=== PATIENT | female | born 1935 | race Caucasian/White ===

== ENCOUNTER → 2018-01-24 | Outpatient (CLI) | payer MEDICARE, MEDICAID ==
[~2018-01-24] MED LIST: AMOX1TAB11 PO; BENZ200C51 PO; CARV25TA PO; CLON0.1T PO; ERGO50006 PO; FERR325T18 PO; FLUT16SP22 NS; FURO40TA4 PO; INSU100I14 SC; INSU100I29 SC; ROPI0.5T2 PO; ROSU10TA26 PO; VALS160T28 PO; VIT1TABL5 PO
--- NOTE | 2018-01-24 12:19 | Diagnostic Imaging Report ---
INDICATION: Right hip pain status post fall. COMPARISON: None. FINDINGS: Two dedicated radiographic views of the right hip were obtained. There is no fracture, dislocation, bone destruction, or radiopaque foreign body. Mild degenerative changes are present in the hip joints. The visualized pelvic osseous structures and the SI joints demonstrate no acute fracture or dislocation. There is no bone destruction or radiopaque foreign body. The surrounding soft tissue structures are unremarkable. IMPRESSION: 1. No acute fracture or dislocation in the right hip joint. 2. Mild osteoarthritis. Dictated by: Dictated on workstation # [id number]
== END ==
LOC: RAD 11:38
PROVIDERS: ATTEND Family Medicine
DX: M16.11 Unilateral primary osteoarthritis, right hip (principal); W19.XXXA Unspecified fall, initial encounter
CPT/HCPCS: 73502

== ENCOUNTER 2021-05-06 09:30 | Emergency (ER) | payer MEDICARE, MEDICAID ==
[~2021-05-06] VITALS: Ht 165 cm; Wt 72.7 kg
[~2021-05-06 09:30] MED LIST changes: +CLN.1T PO; -CLON0.1T PO; -ROPI0.5T2 PO; +ROPI0.5T4 PO; -ROSU10TA26 PO; +ROSU10TA28 PO; -VALS160T28 PO; +VALS160T29 PO
--- NOTE | 2021-05-06 10:01 | ED Lower Extremity ---
General Stated Complaint: R KNEE PAIN History of Present Illness Date Seen by Provider: May 06, 2021 Time Seen by Provider: 09:40 Initial Comments Patient is an 86-year-old female who presents to the emergency room after a mechanical trip and fall while walking at [employer] this morning. Patient states that she does not really know what precipitated the fall. She does not believe her feet got tangled up underneath her. She states she was just walking and all of a sudden went down on her right hip. She is complaining of hip pain down to her feet. When she arrives by EMS that right lower extremity is shortened and externally rotated. Pulses are intact she does have a significant amount of edema in her lower legs bilaterally. Per review of her medical records that she has with her she has chronic kidney disease and is on diuretic therapy. Patient states she is compliant with her medications. She is Covid vaccinated. She denies any head injury or loss of consciousness. She does not have any other complaints of pain. Patient is a little nauseous after her fall. All other review of systems reviewed and negative except as stated above. Onset: just prior to arrival Severity: moderate Pain/Injury Location: right thigh Method of Injury: fell Modifying Factors: Improves With Immobilization; Worse With Movement Allergies and Home Medications Allergies Coded Allergies: No Known Drug Allergies (Unverified , 01/16/18) Home Medications Amoxicillin/Potassium Clav 1 Each Tablet, 1 EACH PO BID Prescribed by: PIYUSH KITCHEN on 01/21/18 0740 Benzonatate 200 Mg Capsule, 200 MG PO TID PRN for COUGH, (Reported) Carvedilol 25 Mg Tablet, 25 MG PO BID, (Reported) Clonidine HCl 0.1 Mg Tablet, 0.1 MG PO TID, (Reported) Ergocalciferol (Vitamin D2) 50,000 Unit Capsule, 50,000 UNITS PO MONTHLY ON THE , (Reported) Ferrous Sulfate 325 Mg Tablet, 325 MG PO DAILY, (Reported) Fluticasone Propionate 16 Gm [place].susp, 2 SPRAY NS DAILY, (Reported) Furosemide 40 Mg Tablet, 40 MG PO MoWeFr, (Reported) Furosemide 40 Mg Tablet, 80 MG PO SuTuThSa, (Reported) TAKES 2 (40MG) TABLETS Insulin Aspart 300 Units/3 Ml Solution, 10 UNITS SC AC, (Reported) Insulin Detemir 100 Unit/1 Ml Insuln.pen, 42 UNITS SC DAILY, (Reported) Ropinirole HCl 0.5 Mg Tablet, 0.5 MG PO DAILY, (Reported) Rosuvastatin Calcium 10 Mg Tablet, 10 MG PO DAILY, (Reported) Valsartan 160 Mg Tablet, 160 MG PO DAILY, (Reported) Vit B12/Lm-Folate Ca/Vit B6/B2 1 Tab Tablet, 1 TAB PO DAILY, (Reported) Patient Home Medication List Home Medication List Reviewed: Yes Review of Systems Constitutional: see HPI EENTM: no symptoms reported Respiratory: no symptoms reported Cardiovascular: no symptoms reported Gastrointestinal: nausea Genitourinary: no symptoms reported Musculoskeletal: joint pain (Right hip) Skin: no symptoms reported All Other Systems Reviewed Negative Unless Noted: Yes Past Eqbxtbm-Dwmztr-Iwvujb Hx Seasonal Allergies Seasonal Allergies: No Past Medical History Surgeries: No Respiratory: No Cardiac: Yes High Cholesterol, Hypertension Neurological: No Genitourinary: Yes (history of urinary tract infection) Renal Failure Gastrointestinal: No Musculoskeletal: No Endocrine: Yes (hyperparathyroidism) Diabetes, Insulin dep HEENT: No Cancer: No Psychosocial: No Integumentary: No 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 7.0oz. 94.175801ao; 38.8 BMI Method:Estimated General Appearance: WD/WN, no apparent distress HEENT: PERRL/EOMI Neck: supple Cardiovascular: regular rate, rhythm Respiratory: normal breath sounds, no respiratory distress, no accessory muscle use Gastrointestinal: non tender, soft Hips: right hip bone tenderness (Right lateral hip), right hip deformity (Shortened and externally rotated), right hip limited range of motion (Secondary to pain), right hip pain; bilateral hip swelling Legs: bilateral leg non-tender, bilateral leg normal inspection, bilateral leg no evidence of injury Knees: bilateral knee non-tender, bilateral knee normal inspection, bilateral knee no evidence of injury Ankles: bilateral ankle non-tender, bilateral ankle normal inspection, bilateral ankle normal range of motion, bilateral ankle no evidence of injury Feet: bilateral foot non-tender, bilateral foot normal inspection, bilateral foot normal range of motion, bilateral foot no evidence of injury Neurologic/Psychiatric: no motor/sensory deficits, alert, normal mood/affect, oriented x 3 Skin: normal color, warm/dry Procedures/Interventions Date of ETT Placement: Jan 16, 2018 Time of ETT Placement: 1730 Progress/Results/Core Measures Results/Orders Lab Results Laboratory Tests Test 05/06/21 09:51 05/06/21 11:08 Range/Units Glucometer 182 H 70-110 MG/DL White Blood Count 12.1 H 4.3-11.0 10^3/uL Red Blood Count 2.65 L 3.80-5.11 10^6/uL Hemoglobin 8.2 L 11.5-16.0 g/dL Hematocrit 26 L 35-52 % Mean Corpuscular Volume 99 80-99 fL Mean Corpuscular Hemoglobin 31 25-34 pg Mean Corpuscular Hemoglobin Concent 31 L 32-36 g/dL Red Cell Distribution Width 13.6 10.0-14.5 % Platelet Count 311 130-400 10^3/uL Mean Platelet Volume 9.9 9.0-12.2 fL Immature Granulocyte % (Auto) 1 % Neutrophils (%) (Auto) 75 42-75 % Lymphocytes (%) (Auto) 16 12-44 % Monocytes (%) (Auto) 6 0-12 % Eosinophils (%) (Auto) 2 0-10 % Basophils (%) (Auto) 1 0-10 % Neutrophils # (Auto) 9.1 H 1.8-7.8 10^3/uL Lymphocytes # (Auto) 2.0 1.0-4.0 10^3/uL Monocytes # (Auto) 0.7 0.0-1.0 10^3/uL Eosinophils # (Auto) 0.2 0.0-0.3 10^3/uL Basophils # (Auto) 0.1 0.0-0.1 10^3/uL Immature Granulocyte # (Auto) 0.1 0.0-0.1 10^3/uL Sodium Level 141 135-145 MMOL/L Potassium Level 4.2 3.6-5.0 MMOL/L Chloride Level 111 H 98-107 MMOL/L Carbon Dioxide Level 19 L 21-32 MMOL/L Anion Gap 11 5-14 MMOL/L Blood Urea Nitrogen 35 H 7-18 MG/DL Creatinine 3.04 H 0.60-1.30 MG/DL Estimat Glomerular Filtration Rate 15 BUN/Creatinine Ratio 12 Glucose Level 209 H 70-105 MG/DL Calcium Level 8.0 L 8.5-10.1 MG/DL My Orders Orders - BRIAN CHÁVEZ MD Ekg Tracing (05/06/21 10:01) Accucheck Stat ONCE (05/06/21 10:01) Cbc With Automated Diff (05/06/21 10:01) Basic Metabolic Panel (05/06/21 10:01) Pelvis With Right Hip 2-3views (05/06/21 10:01) Fentanyl Inj (Sublimaze Injection) (05/06/21 10:15) Ondansetron Injection (Zofran Injectio (05/06/21 11:00) Medications Given in ED Vital Signs/I&O 05/06/21 05/06/21 09:32 13:02 Temp 36.0 Pulse 66 72 Resp 18 18 B/P (MAP) 181/80 (113) 152/59 Pulse Ox 95 97 O2 Delivery Room Air Room Air Progress Progress Note : Time: 11:42 Progress Note Patient reassessed, she is comfortable and pain-free as long as she is still. Patient reports to me that her kidney specialist at [facility] is Dr. Italia Solis. She is supposed to have a an appointment with her on Saturday for some sort of injection. Departure Impression Primary Impression: Hip fracture, right Qualified Codes: S72.001A - Fracture of unspecified part of neck of right femur, initial encounter for closed fracture Disposition: 02 XFER SHT-TRM HOSP Condition: Stable Transfer Transfer Reason: Exceeds level of care Time Spoke to Accepting Phy: 11:30 Transfer Progress Notes spoke with dr hall Transfer Time: 12:00 Transfer Facility: [facility] Method of Transfer: EMS Departure-Patient Inst. Referrals: PIYUSH KITCHEN DO (PCP/Family) Primary Care Physician BRIAN CHÁVEZ MD May 06, 2021 10:01
[2021-05-06] MEDS ORDERED: fentaNYL INJ 100 MCG/2 ML AMP IVP ONE (10:15)
[2021-05-06] MEDS ORDERED: ONDANSETRON 4 MG/2 ML (SDV) Z0FRAN IVP ONE (11:00)
[2021-05-06 11:29] LABS: BASOPHILS # (AUTO) 0.1 10^3/uL (0.0-0.1); BASOPHILS % (AUTO) 1 % (0-10); EOSINOPHILS # (AUTO) 0.2 10^3/uL (0.0-0.3); EOSINOPHILS % (AUTO) 2 % (0-10); HEMATOCRIT 26 % (35-52); HEMOGLOBIN 8.2 g/dL (11.5-16.0); LYMPHOCYTES % (AUTO) 16 % (12-44); MEAN CORPUSCULAR HEMOGLOBIN 31 pg (25-34); MEAN CORPUSCULAR HGB CONC 31 g/dL (32-36); MEAN CORPUSCULAR VOLUME 99 fL (80-99); MEAN PLATELET VOLUME 9.9 fL (9.0-12.2); MONOCYTES # (AUTO) 0.7 10^3/uL (0.0-1.0); MONOCYTES % (AUTO) 6 % (0-12); NEUTROPHILS # (AUTO) 9.1 10^3/uL (1.8-7.8); NEUTROPHILS % (AUTO) 75 % (42-75); PLATELET COUNT 311 10^3/uL (130-400); POTASSIUM 4.2 MMOL/L (3.6-5.0); WHITE BLOOD COUNT 12.1 10^3/uL (4.3-11.0)
[2021-05-06 11:34] LABS: CREATININE SERUM 3.04 MG/DL (0.60-1.30)
--- NOTE | 2021-05-06 11:35 | Diagnostic Imaging Report ---
CLINICAL HISTORY: Fall. Right hip pain. COMPARISON: 01/24/2018. TECHNIQUE: 3 views of the pelvis and right hip. FINDINGS: Acute intertrochanteric fracture is seen involving the proximal right femur. No dislocation of the right femoral head from the right acetabulum. The included left femur is unremarkable. No acute displaced fracture is seen in the pelvis. IMPRESSION: 1. Acute intertrochanteric fracture involving the proximal right femur. Dictated by: Dictated on workstation # [id number]
[2021-05-06 13:02] VITALS: BP 152/59
== END 2021-05-06 13:04 | disposition short-term general hospital (02) ==
LOC: EDUNIT# 09:30 → ER 09:31
DX: S72.141A Displaced intertrochanteric fracture of right femur, initial encounter for closed fracture (principal); I10 Essential (primary) hypertension; E11.9 Type 2 diabetes mellitus without complications; E78.00 Pure hypercholesterolemia, unspecified; Z79.4 Long term (current) use of insulin; Z79.899 Other long term (current) drug therapy; W01.0XXA Fall on same level from slipping, tripping and stumbling without subsequent striking against object, initial encounter
CPT/HCPCS: 36415; 80048; 82947; 85025; 93005

== ENCOUNTER → 2021-05-15 | Outpatient (CLI) | payer MEDICARE, MEDICAID | LOC: SDC 11:53 → EDSTATUS 11:55 | PROVIDERS: ATTEND Nurse Practitioner Family | DX: D64.9 Anemia, unspecified (principal) ==

== ENCOUNTER 2021-05-20 15:28 | Emergency (ER) | payer MEDICARE, MEDICAID ==
[~2021-05-20 15:28] MED LIST changes: -FLUT16SP22 NS; +FLUT16SP22 NSEACH
--- NOTE | 2021-05-20 15:46 | ED Upper Extremity ---
General Chief Complaint: Upper Extremity Stated Complaint: R SHOULDER PAIN Source: patient, residential records Exam Limitations: no limitations History of Present Illness Date Seen by Provider: May 20, 2021 Time Seen by Provider: 15:40 Initial Comments This is an 86-year-old female who presents to the ER via [facility] with complaints of right shoulder pain. Allergies and Home Medications Allergies Coded Allergies: No Known Drug Allergies (Unverified , 01/16/18) Home Medications Amoxicillin/Potassium Clav 1 Each Tablet, 1 EACH PO BID Prescribed by: PIYUSH KITCHEN on 01/21/18 0740 Benzonatate 200 Mg Capsule, 200 MG PO TID PRN for COUGH, (Reported) Carvedilol 25 Mg Tablet, 25 MG PO BID, (Reported) Clonidine HCl 0.1 Mg Tablet, 0.1 MG PO TID, (Reported) Ergocalciferol (Vitamin D2) 50,000 Unit Capsule, 50,000 UNITS PO MONTHLY ON THE , (Reported) Ferrous Sulfate 325 Mg Tablet, 325 MG PO DAILY, (Reported) Fluticasone Propionate 16 Gm [place].susp, 2 SPRAY NS DAILY, (Reported) Furosemide 40 Mg Tablet, 40 MG PO MoWeFr, (Reported) Furosemide 40 Mg Tablet, 80 MG PO SuTuThSa, (Reported) TAKES 2 (40MG) TABLETS Insulin Aspart 300 Units/3 Ml Solution, 10 UNITS SC AC, (Reported) Insulin Detemir 100 Unit/1 Ml Insuln.pen, 42 UNITS SC DAILY, (Reported) Ropinirole HCl 0.5 Mg Tablet, 0.5 MG PO DAILY, (Reported) Rosuvastatin Calcium 10 Mg Tablet, 10 MG PO DAILY, (Reported) Valsartan 160 Mg Tablet, 160 MG PO DAILY, (Reported) Vit B12/Lm-Folate Ca/Vit B6/B2 1 Tab Tablet, 1 TAB PO DAILY, (Reported) Past Rpwlfvu-Yadszf-Ydwhjc Hx Seasonal Allergies Seasonal Allergies: No Past Medical History Surgeries: No Respiratory: No Cardiac: Yes High Cholesterol, Hypertension Neurological: No Genitourinary: Yes (history of urinary tract infection) Renal Failure Gastrointestinal: No Musculoskeletal: No Endocrine: Yes (hyperparathyroidism) Diabetes, Insulin dep HEENT: No Cancer: No Psychosocial: No Integumentary: No 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 7.0oz. 94.051529sq; 26.00 BMI Method:Estimated Procedures/Interventions Date of ETT Placement: Jan 16, 2018 Time of ETT Placement: 1730 Progress/Results/Core Measures Results/Orders My Orders Orders - LAVERN [employer] Shoulder, Right, 3 Views (05/20/21 15:43) Vital Signs/I&O 05/20/21 15:28 Temp 37.0 Pulse 69 Resp 18 B/P (MAP) 130/59 (82) Pulse Ox 97 O2 Delivery Room Air Departure Impression Primary Impression: Rotator cuff arthropathy of right shoulder Disposition: 03 XFER SNF Condition: Improved Departure-Patient Inst. Decision time for Depature: 16:41 Referrals: EVANS RICHEY MD (PCP/Family) Primary Care Physician Patient Instructions: Shoulder Pain (DC) Add. Discharge Instructions: Plan: 1. May use ice 20 minutes at a time. May take Tylenol as needed for pain per package. 2. Avoid strenuous activity or pulling of upper extremities. 3. Follow up with your doctor if your pain persist. 4. Return for any new, concerning, or worsening symptoms. All discharge instructions reviewed with patient and/or family. Voiced understanding. LAVERN DE [employer] May 20, 2021 15:46
--- NOTE | 2021-05-20 16:12 | Diagnostic Imaging Report ---
EXAMINATION: Right shoulder, 2 or more views. HISTORY: Trauma. COMPARISON: None available. FINDINGS: There is superior subluxation of the humeral head with remodeling of the undersurface of the acromion. Findings suggestive of rotator cuff arthropathy. There is no charlene anterior or posterior dislocation. No fracture is seen. There is moderate acromioclavicular osteoarthritis. Right-sided portacatheter is present. IMPRESSION: Findings of rotator cuff arthropathy of the right glenohumeral joint without charlene anterior or posterior dislocation. Dictated by: Dictated on workstation # [id number]
[2021-05-20 18:22] VITALS: BP 119/92
== END 2021-05-20 18:22 ==
LOC: EDUNIT# 15:33 → ER 15:34
DX: M12.811 Other specific arthropathies, not elsewhere classified, right shoulder (principal); E11.22 Type 2 diabetes mellitus with diabetic chronic kidney disease; I12.9 Hypertensive chronic kidney disease with stage 1 through stage 4 chronic kidney disease, or unspecified chronic kidney disease; N18.9 Chronic kidney disease, unspecified; D63.1 Anemia in chronic kidney disease; E78.00 Pure hypercholesterolemia, unspecified; Z79.4 Long term (current) use of insulin; Z79.899 Other long term (current) drug therapy
CPT/HCPCS: 73030

== ENCOUNTER 2021-05-22 11:08 | Inpatient (IN) | payer MEDICARE, MEDICAID ==
[~2021-05-22] VITALS: Ht 180.3 cm; Wt 90.0 kg
[2021-05-22] MEDS ORDERED: FUROSEMIDE 40 MG/4 ML INJ (LASIX) IV STA (12:08)
--- NOTE | 2021-05-22 12:27 | ED General ---
General Chief Complaint: General Problems/Pain Stated Complaint: ABNORMAL LABS Nursing Triage Note: PT TO ROOM 03 [facility] WITH C/O ABNORMAL LABS. PT HAD LABS DRAWN AT [facility] TODAY. PT RESIDES AT [facility] FOR RECENT RIGHT HIP FX. Source of Information: Patient Exam Limitations: No Limitations History of Present Illness Date Seen by Provider: May 22, 2021 Time Seen by Provider: 12:03 Initial Comments Here with report of abnormal laboratory studies from the [facility]. Apparently she has elevated potassium and low hemoglobin. Patient has history o f chronic, stage IV renal disease. Denies any complaints other than does have increased swelling. Does report continuing to make urine. Denies fever chills or other concerns. In discussion regarding dialysis or further care, patient states that she does not want dialysis. She also request DNR status and states that she understands where she is at her stages of life and is okay with that. We did discuss at length regarding renal failure and patient verbalized understanding. She is okay with evaluation for the low hemoglobin and high potassium. Timing/Duration: 1 Day Severity: Mild Associated Systoms: No Chest Pain, No Fever/Chills, No Nausea/Vomiting, No Shortness of Air; Weakness Allergies and Home Medications Allergies Coded Allergies: No Known Drug Allergies (Unverified , 01/16/18) Home Medications Acetaminophen 650 Mg Tablet.er, 650 MG PO Q6H PRN for PAIN-MILD (1-4), (Reported) Last Action: Held Allopurinol 100 Mg Tablet, 200 MG PO DAILY, (Reported) TAKES 2 (100MG) TABS Last Action: Continued Amlodipine Besylate 5 Mg Tablet, 5 MG PO HS, (Reported) HOLD AND NOTIFY NURSE/PCP IF BP <80/50 OR >180/110 AND PULSE <50 OR >110 Last Action: Continued Aspirin 81 Mg Tablet.dr, 81 MG PO BID, (Reported) Last Action: Continued Carvedilol 6.25 Mg Tablet, 6.25 MG PO BID, (Reported) HOLD AND NOTIFY NURSE/PCP IF BP <80/50 OR >180/110 AND PULSE <50 OR >110 Last Action: Continued Cholecalciferol (Vitamin D3) 125 Mcg Capsule, 125 MCG PO DAILY, (Reported) Last Action: Held Clonidine HCl 0.1 Mg Tablet, 0.1 MG PO TID, (Reported) HOLD AND NOTIFY NURSE/PCP IF BP <80/50 OR >180/110 AND PULSE <50 OR >110 Last Action: Continued Docusate Sodium 100 Mg Tablet, 100 MG PO DAILY, (Reported) Last Action: Held Fluticasone Propionate 16 Gm [place].susp, 2 SPRAY NSEACH DAILY, (Reported) Last Action: Continued Gabapentin 300 Mg Capsule, 300 MG PO DAILY PRN for PAIN-BREAKTHROUGH, (Reported) Last Action: Continued Hydrocodone/Acetaminophen 1 Each Tablet, 1 EACH PO Q4H PRN for PAIN-MODERATE (5- 7), (Reported) Last Action: Held Insulin Aspart 300 Units/3 Ml Solution, 3 UNITS SC AC, (Reported) Last Action: Converted Insulin Detemir 100 Unit/1 Ml Insuln.pen, 8 UNITS SC BID, (Reported) Last Action: Converted Losartan Potassium 50 Mg Tablet, 50 MG PO DAILY, (Reported) HOLD AND NOTIFY NURSE/PCP IF BP <80/50 OR >180/110 AND PULSE <50 OR >110 Last Action: Held Magnesium Hydroxide 400 Mg/5 Ml Oral.susp, 30 ML PO DAILY PRN for CONSTIPATION- 7TH LINE, (Reported) Last Action: Held Ropinirole HCl 0.5 Mg Tablet, 0.5 MG PO HS, (Reported) Last Action: Converted Rosuvastatin Calcium 10 Mg Tablet, 10 MG PO HS, (Reported) Last Action: Continued Torsemide 20 Mg Tablet, 40 MG PO Q48H, (Reported) TAKES 2 (20MG) TABS Last Action: Held Tramadol HCl 50 Mg Tablet, 50 MG PO Q6H PRN for PAIN-MODERATE (5-7), (Reported) Last Action: Held Vitamin B Complex 1 Each Capsule, 1 EA PO DAILY, (Reported) Last Action: Held Patient Home Medication List Home Medication List Reviewed: Yes Review of Systems Review of Systems Constitutional: No chills, No fever EENTM: no symptoms reported Respiratory: No cough, No short of breath Cardiovascular: No chest pain; edema Gastrointestinal: No abdominal pain, No nausea, No vomiting Genitourinary: no symptoms reported Musculoskeletal: No back pain, No muscle pain; muscle weakness Skin: no symptoms reported All Other Systems Reviewed Negative Unless Noted: Yes Past Fiyyoyw-Xzjvrq-Rtynyj Hx Patient Social History Tobacco Use?: No Smoking Status: Never a Smoker Substance use?: No Alcohol Use?: No Pt feels they are or have been: No Immunizations Up To Date First/Initial COVID19 Vaccinat: 01/2021 Second COVID19 Vaccination Malcom: 02/2021 Seasonal Allergies Seasonal Allergies: No Past Medical History Surgery/Hospitalization HX: RIGHT HIP FX WITH REPAIR Surgeries: No Respiratory: No Cardiac: Yes High Cholesterol, Hypertension Neurological: No Genitourinary: Yes (history of urinary tract infection) Renal Failure Gastrointestinal: No Musculoskeletal: No Endocrine: Yes (hyperparathyroidism) Diabetes, Insulin dep HEENT: No Cancer: No Psychosocial: No Integumentary: No 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 7.0oz. 94.676677tg; 36.00 BMI Method:Estimated General Appearance: No Apparent Distress, WD/WN, Obese HEENT: PERRL/EOMI, Pharynx Normal Neck: Non Tender, Supple Respiratory: Lungs Clear, Normal Breath Sounds Cardiovascular: Regular Rate, Rhythm, No Murmur Gastrointestinal: Non Tender, Soft Back: Normal Inspection, No CVA Tenderness, No Vertebral Tenderness Extremity: Normal Range of Motion, Non Tender, No Calf Tenderness, Pedal Edema, Other (Edema noted to all 4 extremities) Neurologic/Psychiatric: Alert, Oriented x3, No Motor/Sensory Deficits Procedures/Interventions Date of ETT Placement: Jan 16, 2018 Time of ETT Placement: 1730 Progress/Results/Core Measures Suspected Sepsis SIRS Temperature: Pulse: 61 Respiratory Rate: 16 Laboratory Tests 05/22/21 12:28: White Blood Count 12.0H Blood Pressure 104 /94 Mean: 97 Laboratory Tests 05/22/21 12:28: Creatinine 3.73H, Platelet Count 459H, Total Bilirubin 0.3 Results/Orders Lab Results Laboratory Tests Test 05/22/21 12:28 05/22/21 12:55 Range/Units White Blood Count 12.0 H 4.3-11.0 10^3/uL Red Blood Count 2.51 L 3.80-5.11 10^6/uL Hemoglobin 7.7 L 11.5-16.0 g/dL Hematocrit 25 L 35-52 % Mean Corpuscular Volume 98 80-99 fL Mean Corpuscular Hemoglobin 31 25-34 pg Mean Corpuscular Hemoglobin Concent 31 L 32-36 g/dL Red Cell Distribution Width 14.1 10.0-14.5 % Platelet Count 459 H 130-400 10^3/uL Mean Platelet Volume 9.4 9.0-12.2 fL Immature Granulocyte % (Auto) 1 % Neutrophils (%) (Auto) 71 42-75 % Lymphocytes (%) (Auto) 16 12-44 % Monocytes (%) (Auto) 11 0-12 % Eosinophils (%) (Auto) 1 0-10 % Basophils (%) (Auto) 1 0-10 % Neutrophils # (Auto) 8.5 H 1.8-7.8 10^3/uL Lymphocytes # (Auto) 1.9 1.0-4.0 10^3/uL Monocytes # (Auto) 1.3 H 0.0-1.0 10^3/uL Eosinophils # (Auto) 0.1 0.0-0.3 10^3/uL Basophils # (Auto) 0.1 0.0-0.1 10^3/uL Immature Granulocyte # (Auto) 0.1 0.0-0.1 10^3/uL Sodium Level 142 135-145 MMOL/L Potassium Level 6.2 H 3.6-5.0 MMOL/L Chloride Level 109 H 98-107 MMOL/L Carbon Dioxide Level 22 21-32 MMOL/L Anion Gap 11 5-14 MMOL/L Blood Urea Nitrogen 58 H 7-18 MG/DL Creatinine 3.73 H 0.60-1.30 MG/DL Estimat Glomerular Filtration Rate 11 BUN/Creatinine Ratio 16 Glucose Level 64 L 70-105 MG/DL Calcium Level 8.2 L 8.5-10.1 MG/DL Corrected Calcium 9.6 8.5-10.1 MG/DL Total Bilirubin 0.3 0.1-1.0 MG/DL Aspartate Amino Transf (AST/SGOT) 61 H 5-34 U/L Alanine Aminotransferase (ALT/SGPT) 26 0-55 U/L Alkaline Phosphatase 128 40-136 U/L Total Protein 5.6 L 6.4-8.2 GM/DL Albumin 2.3 L 3.2-4.5 GM/DL Urine Color YELLOW Urine Clarity SL CLOUDY Urine pH 7.5 5-9 Urine Specific [place] 1.020 1.016-1.022 Urine Protein 3+ H NEGATIVE Urine Glucose (UA) NEGATIVE NEGATIVE Urine Ketones NEGATIVE NEGATIVE Urine Nitrite NEGATIVE NEGATIVE Urine Bilirubin NEGATIVE NEGATIVE Urine Urobilinogen 0.2 < = 1.0 MG/DL Urine Leukocyte Esterase 2+ H NEGATIVE Urine RBC (Auto) 2+ H NEGATIVE Urine RBC 0-2 /HPF Urine WBC 50-100 H /HPF Urine Squamous Epithelial Cells NONE /HPF Urine Crystals NONE /LPF Urine Bacteria LARGE H /HPF Urine Casts NONE /LPF Urine Mucus NEGATIVE /LPF Urine Culture Indicated YES Micro Results Microbiology 05/22/21 Urine Culture - Preliminary, Resulted Gram Negative Zen My Orders Orders - AMOR PRATT MD Cbc With Automated Diff (05/22/21 11:13) Comprehensive Metabolic Panel (05/22/21 11:13) Ed Iv/Invasive Line Start (05/22/21 12:08) Catheter(Urinary) Insert & Ass 03,15 (05/22/21 12:08) Furosemide Injection (Lasix Injection) (05/22/21 12:08) Ua Culture If Indicated (05/22/21 13:02) Urine Culture (05/22/21 12:55) Vital Signs/I&O 05/22/21 11:14 Temp 36.8 Pulse 61 Resp 16 B/P (MAP) 104/94 (97) O2 Delivery Room Air Capillary Refill : Less Than 3 Seconds Blood Pressure Mean: 97 Progress Note : Progress Note Seen and evaluated. Repeat labs ordered. IV established. Monitor patient. Patient noted to have persistent renal failure and elevated creatinine. Lasix 40 mg IV ordered as patient still does make urine. 1351: I did discuss the case with Dr. Boucher. He accepts patient for admission. He asked for additional dose of Lasix 40 mg IV which I did order. This to bring down the potassium well. Patient was noted to have urinary tract infection on UA from [place] catheter placement. She does have urinary tract infection without sepsis. We will go ahead and treat this asymptomatic UTI with Rocephin now and he will continue treatment as needed. No indication for sepsis order set as patient does not have findings consistent with sepsis or severe sepsis and the UTI is incidental. All findings concerns discussed with the patient who agrees with plan. Patient is DNR. Departure Communication (Admissions) Time/Spoke to Admitting Phy: 13:51 Impression Primary Impression: Urinary tract infection Qualified Codes: N30.00 - Acute cystitis without hematuria Additional Impression: Hyperkalemia Disposition: ADMITTED INPATIENT Condition: Stable Admissions Decision to Admit Reason: Admit from ER (General) Decision to Admit/Date: May 22, 2021 Time/Decision to Admit Time: 13:51 Departure-Patient Inst. Referrals: EVANS RICHEY MD (PCP/Family) Primary Care Physician AMOR PRATT MD May 22, 2021 12:27
[2021-05-22 12:35] LABS: BASOPHILS # (AUTO) 0.1 10^3/uL (0.0-0.1); BASOPHILS % (AUTO) 1 % (0-10); EOSINOPHILS # (AUTO) 0.1 10^3/uL (0.0-0.3); EOSINOPHILS % (AUTO) 1 % (0-10); HEMATOCRIT 25 % (35-52); HEMOGLOBIN 7.7 g/dL (11.5-16.0); LYMPHOCYTES # (AUTO) 1.9 10^3/uL (1.0-4.0); LYMPHOCYTES % (AUTO) 16 % (12-44); MEAN CORPUSCULAR HEMOGLOBIN 31 pg (25-34); MEAN CORPUSCULAR HGB CONC 31 g/dL (32-36); MEAN CORPUSCULAR VOLUME 98 fL (80-99); MEAN PLATELET VOLUME 9.4 fL (9.0-12.2); MONOCYTES # (AUTO) 1.3 10^3/uL (0.0-1.0); MONOCYTES % (AUTO) 11 % (0-12); NEUTROPHILS # (AUTO) 8.5 10^3/uL (1.8-7.8); NEUTROPHILS % (AUTO) 71 % (42-75); PLATELET COUNT 459 10^3/uL (130-400)
[2021-05-22 12:47] LABS: ALBUMIN 2.3 GM/DL (3.2-4.5); POTASSIUM 6.2 MMOL/L (3.6-5.0)
[2021-05-22 12:48] LABS: CALCIUM 8.2 MG/DL (8.5-10.1)
[2021-05-22 12:49] LABS: TOTAL PROTEIN 5.6 GM/DL (6.4-8.2)
[2021-05-22 12:51] LABS: BILIRUBIN,TOTAL 0.3 MG/DL (0.1-1.0)
[2021-05-22 12:53] LABS: CREATININE SERUM 3.73 MG/DL (0.60-1.30)
[2021-05-22 13:11] LABS: BILIRUBIN,URINE NEGATIVE (NEGATIVE); CLARITY,URINE SL CLOUDY; COLOR,URINE YELLOW; GLUCOSE, URINE (UA) NEGATIVE (NEGATIVE); KETONES,URINE NEGATIVE (NEGATIVE); LEUKOCYTE ESTERASE ,URINE 2+ (NEGATIVE); NITRITE,URINE NEGATIVE (NEGATIVE); PH,URINE 7.5 (5-9); PROTEIN,URINE 3+ (NEGATIVE)
[2021-05-22 13:43] LABS: BACTERIA,URINE LARGE /HPF; RBC,URINE 0-2 /HPF; WBC,URINE 50-100 /HPF
[2021-05-22] MEDS ORDERED: AMLO-250 PO (15:56)
[2021-05-22] MEDS ORDERED: ASPI-1238 PO (15:56)
[2021-05-22] MEDS ORDERED: MAGN400O7 PO ×2 (15:56)
[2021-05-22] MEDS ORDERED: ACET-2840 PO (15:56)
[2021-05-22] MEDS ORDERED: CARV6.252 PO (15:56)
[2021-05-22] MEDS ORDERED: LOSA50TA63 PO (15:56)
[2021-05-22] MEDS ORDERED: TRAM50TA3 PO (15:56)
[2021-05-22] MEDS ORDERED: VITA1CAP PO (15:56)
[2021-05-22] MEDS ORDERED: HYDR-3817 PO (15:56)
[2021-05-22] MEDS ORDERED: GABA300C PO (15:56)
[2021-05-22] MEDS ORDERED: DOCU100T2 PO (15:56)
[2021-05-22] MEDS ORDERED: CHOL500050 PO (15:56)
[2021-05-22] MEDS ORDERED: TORS20TA3 PO (15:56)
[2021-05-22] MEDS ORDERED: ALLO100T PO (15:56)
[2021-05-22 16:00] VITALS: BP 187/67
[2021-05-22] MEDS: FUROSEMIDE 40 MG/4 ML INJ (LASIX) IVP SCH (16:10)
[2021-05-22] MEDS: cefTRIAXone 1,000 MG/SWFI 10 ML IV PUSH IV SCH ×2 (16:10)
--- NOTE | 2021-05-22 16:14 | History & Physical-Hospitalist ---
MARS BERRIOS 05/22/21 1614: History of Present Illness HPI/Chief Complaint Marley Hackett is an 86y/o F who presents after being transferred from the ED for abnormal labs. She reports that she was brought in today because of hip pain and she was not having any bowl movements lately. Pt says that the hip pain is constant and sharp. The pain worsens when she is laying on her side. Rates the pain as a 10/10 but says that she is not having any issues sleeping at night. Source: patient Exam Limitations: no limitations Date Seen 05/22/21 Time Seen by a Provider: 15:22 Attending Physician Gisel Waldron MD PCP John Kapadia MD Referring Physician Date of Admission May 22, 2021 at 14:18 Home Medications & Allergies Home Medications Reviewed patient Home Medication Reconciliation performed by pharmacy medication reconciliations healthcare technician and/or nursing. Patients Allergies have been reviewed. Allergies Allergies Coded Allergies No Known Drug Allergies (Unverified01/16/18) Past Hlixcqt-Tclwvm-Fzxelt Hx Patient Social History Tobacco Use?: No Smoking Status: Never a Smoker Use of E-Cig and/or Vaping dev: No Substance use?: No Alcohol Use?: No Pt feels they are or have been: No Immunizations Up To Date First/Initial COVID19 Vaccinat: 01/2021 Second COVID19 Vaccination Malcom: 02/2021 Tetanus Booster (TDap): Unknown Seasonal Allergies Seasonal Allergies: No Current Status status: No Advance Directives: Yes Advance Directive Location: Home Communicates: Verbally Primary Language: Kenyan Preferred Spoken Language: Kenyan Is interpretation needed?: No Sensory deficits: Vision impairment Implanted or Applied Medical D: Orthopedic hardware Past Medical History High Cholesterol, Hypertension Renal Failure Diabetes, Insulin dep Blood Disorders: Yes (anemia secondary to renal failure) Adverse Reaction/Blood Tranf: No Review of Systems Constitutional: No chills, No dizziness, No fever Respiratory: short of breath Cardiovascular: No chest pain, No palpitations Gastrointestinal: No abdominal pain; constipation Musculoskeletal: joint pain (rt hip), muscle pain (rt arm) Psychiatric/Neurological: Denies Headache, Denies Numbness Physical Exam Physical Exam Vital Signs Vital Signs - First Documented 05/22/21 05/22/21 11:14 14:55 Temp 36.8 Pulse 61 Resp 16 B/P (MAP) 104/94 (97) Pulse Ox 95 O2 Delivery Room Air Capillary Refill : Less Than 3 Seconds Height, Weight, BMI Height: 5'2.00" Weight: 209lbs. 7.0oz. [id number]; 27.68 BMI Method:Estimated General Appearance: No Apparent Distress Respiratory: Lungs Clear, Normal Breath Sounds Cardiovascular: Regular Rate, Rhythm, No Murmur (3-4+/4) Gastrointestinal: Non Tender, Soft Genital/Rectal: Other (Pt had mcclellan bag in which had yellow/green urine with mucus present) Extremity: Pedal Edema Neurologic/Psychiatric: Alert, Other (Oriented to place but not time) Results Results/Procedures Labs Laboratory Tests 05/22/21 12:28 Patient resulted labs reviewed. Assessment/Plan Admission Diagnosis RAY on CKD Assessment and Plan Assessment 1.RAY on CKD 2.Hyperkalemia 3.Anemia related to CKD 4.Suspected UTI Plan Start Lasix for lower extremity edema Start ceftriaxone for UTI GISEL WALDRON MD 05/23/21 1104: Past Yzcdzrg-Nyxcen-Iykaak Hx Past Medical History Hypertension Bladder Infection, Renal Failure Diabetes, Insulin dep Family Medical History No Pertinent Family Hx Assessment/Plan Admission Diagnosis Admission Status: Inpatient Order (span 2 midnights) Reason for Inpatient Admission: Renal failure Assessment and Plan RAY on CKD with guarded prognosis. She does not want dialysis. We will medically manage her renal failure complications and treat her for a UTI. Diagnosis/Problems Diagnosis/Problems (1) Acute kidney injury superimposed on chronic kidney disease Status: Acute (2) Hyperkalemia Status: Acute (3) Urinary tract infection Status: Acute Qualifiers: Urinary tract infection type: acute cystitis Hematuria presence: without hematuria Qualified Codes: N30.00 - Acute cystitis without hematuria Supervisory-Addendum Brief Verification & Attestation Participated in pt care: history, MDM, physical Personally performed: exam, history, MDM, supervision of care Care discussed with: Medical Student Procedures: n/a Results interpretation: Verified all documentation A medical student performed and documented this service in my presence. I reviewed and verified all information documented by the medical student and made modifications to such information, when appropriate. I personally performed the physical exam and medical decision making. MARS BERRIOS May 22, 2021 16:14 GISEL WALDRON MD May 23, 2021 11:04
[2021-05-22] MEDS ORDERED: GABAPENTIN 300 MG (NEURONTIN) CAP PO PRN (17:30)
[2021-05-22] MEDS ORDERED: BISACODYL 10 MG SUPP (DULCOLAX) PR PRN (17:45)
[2021-05-22] MEDS ORDERED: ONDANSETRON 4 MG/2 ML (SDV) Z0FRAN IV PRN (17:45)
[2021-05-22] MEDS ORDERED: ONDANSETRON 4 MG (ZOFRAN) ORAL DISSOLVE TAB PO PRN (17:45)
[2021-05-22] MEDS ORDERED: ACETAMINOPHEN 500 MG TAB (TYLENOL) PO PRN (17:45)
[2021-05-22] MEDS ORDERED: MELATONIN 3 MG TABLET PO PRN (17:45)
[2021-05-22] MEDS ORDERED: ACETAMINOPHEN 325 MG TABLET PO PRN (17:45)
[2021-05-22] MEDS ORDERED: inSUlin ASPART (NovoLOG) 1 UNIT/0.01 ML (CHARGE PER UNIT) SC SCH (17:45)
[2021-05-22] MEDS ORDERED: SOD POLYSTERENE 15 GM/60 ML (KAYEXALATE) UNIT DOSE PO ONE (17:45)
[2021-05-22] MEDS ORDERED: ANTACID SUSP 30 ML UDC (MYLANTA) PO PRN (17:45)
[2021-05-22] MEDS ORDERED: polyethylene glycoL POWDER 17 GM (MIRALAX) PACK PO PRN (17:45)
[2021-05-22] MEDS ORDERED: NALOXONE 0.4 MG/ML 1 ML (NARCAN) VIAL IV PRN (17:45)
[2021-05-22 19:30] VITALS: BP 196/69
[2021-05-22] MEDS: rOPINIRole 0.25 MG (REQUIP) TAB PO SCH (19:55)
[2021-05-22] MEDS: ROSUVASTATIN 10 MG (CRESTOR) TABLET PO SCH (19:56)
[2021-05-22] MEDS: ASPIRIN E.C. 81 MG (ECOTRIN) TAB PO SCH (19:56)
[2021-05-22] MEDS: cloNIDine 0.1 MG (CATAPRES) TAB PO SCH (19:56)
[2021-05-22] MEDS: SENNOSIDES 8.6 MG (SENOKOT) TAB PO SCH (19:56)
[2021-05-22] MEDS: DOCUSATE SODIUM 100 MG (COLACE) CAP PO SCH (19:56)
[2021-05-22] MEDS: inSUlin ASPART (NovoLOG) 1 UNIT/0.01 ML (CHARGE PER UNIT) SC SCH (20:42)
[2021-05-22] MEDS ORDERED: INSULIN DETEMIR 8 UNIT SC SCH (21:00)
[2021-05-22] MEDS ORDERED: amLODIPine 5 MG (NORVASC) TAB PO SCH (21:00)
[2021-05-22 21:10] VITALS: BP 171/65
[2021-05-23] VITALS (7 sets, daily range): BP systolic 156–189; BP diastolic 59–76
[2021-05-23] MEDS: inSUlin ASPART (NovoLOG) 1 UNIT/0.01 ML (CHARGE PER UNIT) SC SCH ×4 (05:39→20:52)
[2021-05-23 05:49] LABS: BASOPHILS # (AUTO) 0.1 10^3/uL (0.0-0.1); BASOPHILS % (AUTO) 0 % (0-10); EOSINOPHILS % (AUTO) 0 % (0-10); HEMATOCRIT 23 % (35-52); LYMPHOCYTES % (AUTO) 14 % (12-44); MEAN CORPUSCULAR HEMOGLOBIN 30 pg (25-34); MEAN CORPUSCULAR HGB CONC 30 g/dL (32-36); MEAN CORPUSCULAR VOLUME 100 fL (80-99); MEAN PLATELET VOLUME 9.6 fL (9.0-12.2); MONOCYTES # (AUTO) 1.2 10^3/uL (0.0-1.0); MONOCYTES % (AUTO) 8 % (0-12); NEUTROPHILS # (AUTO) 11.2 10^3/uL (1.8-7.8); NEUTROPHILS % (AUTO) 77 % (42-75); PLATELET COUNT 449 10^3/uL (130-400); WHITE BLOOD COUNT 14.5 10^3/uL (4.3-11.0)
[2021-05-23 05:51] LABS: HEMOGLOBIN 6.9 g/dL (11.5-16.0)
[2021-05-23 06:03] LABS: CALCIUM 7.8 MG/DL (8.5-10.1)
[2021-05-23 06:07] LABS: PHOSPHORUS 5.8 MG/DL (2.3-4.7)
[2021-05-23 06:08] LABS: CREATININE SERUM 3.84 MG/DL (0.60-1.30)
[2021-05-23 06:18] LABS: LYMPHOCYTES % (MANUAL) 13 %; MONOCYTES % (MANUAL) 5 %; NEUTROPHILS % (MANUAL) 82 %
[2021-05-23 06:19] LABS: ANISOCYTOSIS SLIGHT; HYPOCHROMASIA SLIGHT
[2021-05-23 06:20] LABS: POTASSIUM 6.5 MMOL/L (3.6-5.0)
[2021-05-23] MEDS: FUROSEMIDE 40 MG/4 ML INJ (LASIX) IVP SCH ×2 (06:26→16:41)
[2021-05-23] MEDS ORDERED: INSULIN ASPART 3 UNIT SC SCH (07:00)
[2021-05-23] MEDS ORDERED: DEXTROSE 50% 50 ML (IMS) SYR IV NR (07:45)
[2021-05-23] MEDS ORDERED: inSUlin (REGULAR) HUMAN 1 UNIT/0.01 ML (CHARGE PER UNIT) IV NR (07:45)
[2021-05-23] MEDS ORDERED: FUROSEMIDE 40 MG/4 ML INJ (LASIX) IVP NR (07:45)
[2021-05-23] MEDS ORDERED: SOD POLYSTERENE 15 GM/60 ML (KAYEXALATE) UNIT DOSE PO NR (07:45)
[2021-05-23] MEDS: SENNOSIDES 8.6 MG (SENOKOT) TAB PO SCH ×2 (08:11→21:42)
[2021-05-23] MEDS: CALCIUM ACETATE 667 MG CAP (PHOSLO) PO SCH ×3 (08:11→16:41)
[2021-05-23] MEDS: SODIUM BICARBONATE 650 MG TABLET (NON-FORMULARY) PO SCH ×3 (08:11→20:29)
[2021-05-23] MEDS: ASPIRIN E.C. 81 MG (ECOTRIN) TAB PO SCH ×2 (08:11→20:29)
[2021-05-23] MEDS: ALLOPURINOL 100 MG (ZYLOPRIM) TAB PO SCH (08:11)
[2021-05-23] MEDS: cloNIDine 0.1 MG (CATAPRES) TAB PO SCH ×3 (08:11→20:29)
[2021-05-23] MEDS: DOCUSATE SODIUM 100 MG (COLACE) CAP PO SCH ×2 (08:11→21:42)
[2021-05-23] MEDS: FLUTICASONE NASAL SPRAY (FLONASE) 16 GM BTL NS SCH (08:14)
--- NOTE | 2021-05-23 13:06 | Progress Note - Hospitalist ---
JEANNETTE BERRIOSIN 05/23/21 1306: Subjective HPI/CC On Admission Time Seen by Provider: 07:48 Subjective/Events-last exam Pt was alert and awake. She reports having SOB this morning and said that at times she feels that she can't catch her breath. O2 was given at 3lpm via nasal canula. Says that the pain that she was experiencing yesterday has improved. She stated that if a time would come that she would need dialysis that should would not like that to be done. Not having any abdominal pain. Reports that she has been able to have bowl movements Review of Systems General: No Chills, No Other (fever) Pulmonary: No Dyspnea; Other (SOB) Cardiovascular: No: Chest Pain, Palpitations Gastrointestinal: No: Abdominal Pain Focused Exam Respiratory: Lungs Clear, Normal Breath Sounds Cardiovascular: Regular Rate, Rhythm, No Murmur Objective Exam Vital Signs Vital Signs Date Time Temp Pulse Resp B/P (MAP) Pulse Ox O2 Delivery O2 Flow Rate FiO2 05/23/21 11:46 37.5 76 24 180/62 (101) 97 Nasal Cannula 2.00 Capillary Refill : Less Than 3 Seconds General Appearance: No Apparent Distress Respiratory: Lungs Clear, Normal Breath Sounds Cardiovascular: Regular Rate, Rhythm, No Murmur Gastrointestinal: Soft, Other (slight tenderness to palpitation in LUQ) Extremity: Pedal Edema (3-4+/4 ) Neurologic/Psychiatric: Alert Results/Procedures Lab Laboratory Tests 05/23/21 05:35 Patient resulted labs reviewed. Assessment/Plan Assessment and Plan Assess & Plan/Chief Complaint Assessment 1.RAY on CKD 2.Hyperkalemia 3.Anemia related to CKD 4.Suspected UTI Plan Start Lasix for lower extremity edema Start ceftriaxone for UTI Consult with palliative care GISEL WALDRON MD 05/23/21 1741: Subjective HPI/CC On Admission Date Seen by Provider: May 23, 2021 Assessment/Plan Assessment and Plan Assess & Plan/Chief Complaint Treating RAY on CKD. Lasix for fluid overload. Start oral Bicarb and Phoslo. Les ating hyperkalemia. Anemia of chronic renal disease, hold off on transfusion for now and monitor closely. Palliative care consulted, will likely discharge on hospice. Diagnosis/Problems Diagnosis/Problems (1) Acute kidney injury superimposed on chronic kidney disease Status: Acute (2) Hyperkalemia Status: Acute (3) UTI (urinary tract infection) Status: Acute (4) Anemia Status: Acute Qualifiers: Qualified Codes: N18.4 - Chronic kidney disease, stage 4 (severe); D63.1 - Anemia in chronic kidney disease Supervisory-Addendum Brief Verification & Attestation Participated in pt care: history, MDM, physical Personally performed: exam, history, MDM, supervision of care Care discussed with: Medical Student Procedures: n/a Results interpretation: Verified all documentation A medical student performed and documented this service in my presence. I reviewed and verified all information documented by the medical student and made modifications to such information, when appropriate. I personally performed the physical exam and medical decision making. MARS BERRIOS May 23, 2021 13:06 GISEL WALDRON MD May 23, 2021 17:41
[2021-05-23] MEDS: cefTRIAXone 1,000 MG/SWFI 10 ML IV PUSH IV SCH ×2 (16:41)
[2021-05-23 17:38] LABS: POTASSIUM 5.5 MMOL/L (3.6-5.0)
[2021-05-23 17:39] LABS: CALCIUM 8.6 MG/DL (8.5-10.1)
[2021-05-23 17:43] LABS: CREATININE SERUM 3.87 MG/DL (0.60-1.30)
[2021-05-23] MEDS ORDERED: SOD POLYSTERENE 15 GM/60 ML (KAYEXALATE) UNIT DOSE PO ONE (20:15)
[2021-05-23] MEDS ORDERED: hydrALAZINE (APESOLINE) 20 MG/ML VIAL IV PRN (20:15)
[2021-05-23] MEDS: ROSUVASTATIN 10 MG (CRESTOR) TABLET PO SCH (20:29)
[2021-05-23] MEDS: rOPINIRole 0.25 MG (REQUIP) TAB PO SCH (20:29)
[2021-05-23] MEDS: amLODIPine 5 MG (NORVASC) TAB PO SCH (20:29)
[2021-05-24] VITALS (9 sets, daily range): BP systolic 137–188; BP diastolic 63–74
[2021-05-24 05:43] LABS: BASOPHILS # (AUTO) 0.1 10^3/uL (0.0-0.1); BASOPHILS % (AUTO) 0 % (0-10); EOSINOPHILS # (AUTO) 0.3 10^3/uL (0.0-0.3); EOSINOPHILS % (AUTO) 2 % (0-10); HEMATOCRIT 22 % (35-52); LYMPHOCYTES # (AUTO) 2.1 10^3/uL (1.0-4.0); LYMPHOCYTES % (AUTO) 15 % (12-44); MEAN CORPUSCULAR HEMOGLOBIN 30 pg (25-34); MEAN CORPUSCULAR HGB CONC 31 g/dL (32-36); MEAN CORPUSCULAR VOLUME 98 fL (80-99); MEAN PLATELET VOLUME 9.7 fL (9.0-12.2); MONOCYTES # (AUTO) 1.3 10^3/uL (0.0-1.0); MONOCYTES % (AUTO) 9 % (0-12); NEUTROPHILS # (AUTO) 10.3 10^3/uL (1.8-7.8); NEUTROPHILS % (AUTO) 73 % (42-75); PLATELET COUNT 454 10^3/uL (130-400); WHITE BLOOD COUNT 14.2 10^3/uL (4.3-11.0)
[2021-05-24 05:51] LABS: POTASSIUM 4.7 MMOL/L (3.6-5.0)
[2021-05-24 05:52] LABS: CALCIUM 7.8 MG/DL (8.5-10.1)
[2021-05-24 05:53] LABS: HEMOGLOBIN 6.7 g/dL (11.5-16.0)
[2021-05-24 05:56] LABS: CREATININE SERUM 3.72 MG/DL (0.60-1.30)
[2021-05-24] MEDS: inSUlin ASPART (NovoLOG) 1 UNIT/0.01 ML (CHARGE PER UNIT) SC SCH ×4 (06:20→20:38)
[2021-05-24] MEDS: FUROSEMIDE 40 MG/4 ML INJ (LASIX) IVP SCH ×2 (06:35→17:29)
[2021-05-24] MEDS: cloNIDine 0.1 MG (CATAPRES) TAB PO SCH ×3 (08:52→21:06)
[2021-05-24] MEDS: CALCIUM ACETATE 667 MG CAP (PHOSLO) PO SCH ×3 (08:52→17:29)
[2021-05-24] MEDS: ALLOPURINOL 100 MG (ZYLOPRIM) TAB PO SCH (08:52)
[2021-05-24] MEDS: FLUTICASONE NASAL SPRAY (FLONASE) 16 GM BTL NS SCH (08:53)
[2021-05-24] MEDS: SODIUM BICARBONATE 650 MG TABLET (NON-FORMULARY) PO SCH ×3 (08:53→21:05)
[2021-05-24] MEDS: SENNOSIDES 8.6 MG (SENOKOT) TAB PO SCH ×2 (08:53→21:05)
[2021-05-24] MEDS: DOCUSATE SODIUM 100 MG (COLACE) CAP PO SCH ×2 (08:53→21:06)
[2021-05-24] MEDS: ASPIRIN E.C. 81 MG (ECOTRIN) TAB PO SCH ×2 (08:57→21:05)
[2021-05-24] MEDS ORDERED: NS IV 500 ML 500 ML ONE (11:34)
--- NOTE | 2021-05-24 12:29 | Progress Note - Hospitalist ---
MARS BERRIOS 05/24/21 1229: Subjective HPI/CC On Admission Time Seen by Provider: 08:20 Subjective/Events-last exam Pt reports that she is doing well this morning and states that she feels better. Was awake and alert. Says that her feet are feeling less swollen than when she first arrived. Review of Systems General: No Chills, No Other (fever) HEENT: No Head Aches Pulmonary: No Dyspnea; Other (occasional SOB) Cardiovascular: No: Chest Pain, Palpitations Objective Exam Vital Signs Vital Signs Date Time Temp Pulse Resp B/P (MAP) Pulse Ox O2 Delivery O2 Flow Rate FiO2 05/24/21 12:10 37.2 72 16 165/72 98 Nasal Cannula 2.00 Capillary Refill : Less Than 3 Seconds General Appearance: No Apparent Distress, WD/WN Respiratory: Lungs Clear, Normal Breath Sounds, No Respiratory Distress Cardiovascular: Regular Rate, Rhythm, No Murmur Gastrointestinal: Non Tender, Soft Extremity: Pedal Edema (3+/4) Results/Procedures Lab Laboratory Tests 05/23/21 17:15 05/24/21 05:18 Patient resulted labs reviewed. Assessment/Plan Assessment and Plan Assess & Plan/Chief Complaint Assessment 1.RAY on CKD 2.Hyperkalemia 3.Anemia related to CKD 4.Suspected UTI Plan Continue current medications. Do blood transfusion for low Hgb. Start EPO or adequate substitute GISEL WALDRON MD 05/24/21 1302: Assessment/Plan Assessment and Plan Assess & Plan/Chief Complaint Continuing treatments for RAY on CKD. EPO for AoCD. Antibiotics for Serratia UTI. Planning to discharge back to [place] on hospice. Diagnosis/Problems Diagnosis/Problems (1) Acute kidney injury superimposed on chronic kidney disease Status: Acute (2) Hyperkalemia Status: Resolved Resolution Date/Time: 05/24/21 @ 13:02 (3) Anemia Status: Acute Qualifiers: Qualified Codes: N18.4 - Chronic kidney disease, stage 4 (severe); D63.1 - Anemia in chronic kidney disease (4) UTI (urinary tract infection) Status: Acute Qualifiers: Qualified Codes: N30.01 - Acute cystitis with hematuria Supervisory-Addendum Brief Verification & Attestation Participated in pt care: history, MDM, physical Personally performed: exam, history, MDM, supervision of care Care discussed with: Medical Student Procedures: n/a Results interpretation: Verified all documentation A medical student performed and documented this service in my presence. I reviewed and verified all information documented by the medical student and made modifications to such information, when appropriate. I personally performed the physical exam and medical decision making. MARS BERRIOS May 24, 2021 12:29 GISEL WALDRON MD May 24, 2021 13:02
--- NOTE | 2021-05-24 14:18 | Physical Therapy Evaluation ---
PT Evaluation-General Medical Diagnosis Admission Date May 23, 2021 at 13:59 Medical Diagnosis: RAY, anemia, sepsis Onset Date: May 23, 2021 Therapy Diagnosis Therapy Diagnosis: impaired mobility, strength, endurance Height/Weight Height (Feet): 5 Height (Inches): 2.00 Weight (Pounds): 209 Weight (Ounces): 7.0 Precautions Precautions/Isolations: Fall Prevention, Standard Precautions Weight Bear Status Right Lower Extremity: Right Weight Bearing/Tolerated Referral Physician: Sander Reason for Referral: Evaluation/Treatment Medical History Pertinent Medical History: HTN, Renal Insufficiency Additional Medical History Past Medical History High Cholesterol, Hypertension Renal Failure Diabetes, Insulin dep Blood Disorders: Yes (anemia secondary to renal failure) Adverse Reaction/Blood Tranf: No Reviewed History: Yes Social History Home: Apartment (patient states she lives in assisted living) Prior Prior Level of Function SCALE: Activities may be completed with or without assistive devices. 3-Ewyjkingco-cdwojyy completes the activity by him/herself with no assistance from a helper. 5-Set-up or Clean-up Assistance-helper sets up or cleans up; patient completes activity. [place] assists only prior to or following the activity. 4-Supervision or Touching Assistance-helper provides verbal cues and/or touching/steadying and/or contact guard assistance as patient completes activity. Assistance may be provided throughout the activity or intermittently. 3-Partial/Moderate Assistance-helper does LESS THAN HALF the effort. [place] lifts, holds or supports trunk or limbs, but provides less than half the effort. 2-Substantial/Maximal Assistance-helper does MORE THAN HALF the effort. [place] lifts or holds trunk or limbs and provides more than half the effort. 7-Qujuuletx-twvmrs does ALL the effort. Patient does none of the effort to complete the activity. Or, the assistance of 2 or more helpers is required for the patient to complete the activity. If activity was not attempted, code reason: 7-Patient Refused. 9-Not Applicable-not attempted and the patient did not perform the activity before the current illness, exacerbation or injury. 10-Not Attempted due to Environmental Limitations-(lack of equipment, weather restraints, etc.). 88-Not Attempted due to Medical Conditions or Safety Concerns. unknown, except patient states she was using a rolling walker PT Evaluation-Current Subjective Patient in bed pre tx, agrees to PT, has no complaints of pain at rest but does have right hip pain with movement. Patient is currently getting blood Hgb was 6.7. Patient has had a right hip surgery from a hip fx, has a bandage, she is WBAT per Dr. Boucher. Pt/Family Goals none stated Objective Patient Orientation: Person, Confused Attachments: Oxygen, De León Catheter, IV Sensory Hearing: Functional Sensation Right Lower Extremit: Intact Sensation Left Lower Extremity: Intact Transfers Roll Left to Right (QC): 2 Sit to Lying (QC): 2 Lying to Sitting/Side of Bed(Q: 2 Patient sat on the side of the bed with max assist, was able to sit for about 2 min before needing to lay back down. Balance Sitting Static: Fair Sitting Dynamic: Poor Treatment RLE hip protocol x10 (AP, QS, GS, HS, SAQ, SLR, hip abd/add) Assessment/Needs Patient in bed post tx with nurse call, phone, tray, all needs met. Patient has impaired mobility, strength, endurance, right hip pain with movement. Patient needs max assist for supine <-> sit. Rehab Potential: Fair PT Tire Fixer Goals Longterm Goals PT Longterm Goals Time Frame: May 31, 2021 Roll Left & Right (QC): 3 Sit to Lying (QC): 3 Lying-Sitting on Side/Bed(QC): 3 Sit to Stand (QC): 3 Chair/Uut-qn-Jhtfl Xfer(QC): 3 Walk 10 feet (QC): 3 Walk 50ft with 2 Turns (QC): 3 PT Plan Problem List Problem List: Activity Tolerance, Functional Strength, Safety, Balance, Gait, Transfer, Bed Mobility, ROM Treatment/Plan Treatment Plan: Continue Plan of Care Treatment Plan: Bed Mobility, Education, Functional Activity Emiliana, Functional Strength, Gait, Safety, Therapeutic Exercise, Transfers Treatment Duration: May 31, 2021 Frequency: 6 times per week Estimated Hrs Per Day: .25 hour per day Patient and/or Family Agrees t: Yes Safety Risks/Education Patient Education: Correct Positioning, Safety Issues Teaching Recipient: Patient Teaching Methods: Demonstration, Discussion Response to Teaching: Reinforcement Needed Discharge Recommendations Plan Patient will perform bed mobility and transfer training, balance and endurance training, functional strengthening, gait training, and education, to improve functional mobility and independence at home. Therapy Discharge Recommendati: 24 Hour Supervision Time/GCodes Time In: 1338 Time Out: 1351 Total Billed Treatment Time: 13 Total Billed Treatment 1 visit PASTORA MONTENEGRO PT May 24, 2021 14:18
--- NOTE | 2021-05-24 14:28 | Occupational Therapy Eval ---
OT Evaluation-General/PLF Medical Diagnosis Admission Date May 23, 2021 at 13:59 Medical Diagnosis: RAY, anemia, sepsis Onset Date: May 22, 2021 Therapy Diagnosis Therapy Diagnosis: decreased ADL status Height/Weight Height (Feet): 5 Height (Inches): 2.00 Weight (Pounds): 209 Weight (Ounces): 7.0 Precautions Precautions/Isolations: Fall Prevention, Standard Precautions Weight Bear Status Weight Bearing Restriction: Weight Bearing/Tolerated Location Restriction: R LE Referral Physician: Sander Referral Reason: Evaluation/Treatment Medical History Pertinent Medical History: DM, HTN, Renal Insufficiency Current History ED via EMS due to abnormal labs. Recent R hip fracture 05-06-21 after falling at [place], pt had surgery. Social History [facility] ADL-Prior Level of Function SCALE: Activities may be completed with or without assistive devices. 8-Yjmdchxdlt-vrwwmgf completes the activity by him/herself with no assistance from a helper. 5-Set-up or Clean-up Assistance-helper sets up or cleans up; patient completes activity. [place] assists only prior to or following the activity. 4-Supervision or Touching Assistance-helper provides verbal cues and/or touching/steadying and/or contact guard assistance as patient completes activity. Assistance may be provided throughout the activity or intermittently. 3-Partial/Moderate Assistance-helper does LESS THAN HALF the effort. [place] lifts, holds or supports trunk or limbs, but provides less than half the effort. 2-Substantial/Maximal Assistance-helper does MORE THAN HALF the effort. [place] lifts or holds trunk or limbs and provides more than half the effort. 6-Tqlytyfbj-kqvlam does ALL the effort. Patient does none of the effort to complete the activity. Or, the assistance of 2 or more helpers is required for the patient to complete the activity. If activity was not attempted, code reason: 7-Patient Refused. 9-Not Applicable-not attempted and the patient did not perform the activity before the current illness, exacerbation or injury. 10-Not Attempted due to Environmental Limitations-(lack of equipment, weather restraints, etc.). 88-Not Attempted due to Medical Conditions or Safety Concerns. ADL PLOF Comments Pt indicates she was at [facility] receiving therapy (OT/PT). Pt poor historian on PLOF, based on clinical judgment, pt most likely required assistance with ADLs since hip fx. Self Care: Unknown Functional Cognition: Unknown DME/Equipment Comments walker OT Current Status Subjective Pt laying in bed, upon OT entering room, pt states she doesn't need anything right now. OT educated pt on purpose and benefit of OT, she agreed to OT evaluation. Pt currently receiving blood transfusion Mental Status/Objective Attachments: De León Catheter, IV, Oxygen Current Glasses/Contacts: Yes Upper Extremity ROM Pt states recent shoulder injury to R shoulder, pt had difficulty raising arm off of bed as instructed. AAROM R shoulder flexion to approx 90 degrees then increased pain. WFL RUE elbow/wrist/hand. WFL, LUE shoulder flexion to approx 140 degrees Upper Extremity Strength RUE grossly 2/5, LUE grossly 3/5 ADL-Treatment Eating (QC): 5 (Pt states she requires assistance to cut food, then able to feed self.) Oral Hygiene (QC): 5 (set up assist, pt able to use LUE with oral swab to clean mouth) Upper Body Dressing (QC): 3 (based on clincial judgement, pt would require assistance with RUE) Toileting Hygiene (QC): 1 (based on clincial judgement, pt would require total assist at this time) Other Treatments Pt laying in bed, OT educated pt on purpose and benefit of OT, she verbalized understanding. Pt attempted to provide information about PLOF, but poor historian. Pt indicates she was receiving therapy at [facility]. She brushed her hair and teeth with set up assistance and washed her face. Pt declined UE exercises as she is tired, but participated in UE screen. Post tx, pt laying in bed, call light in reach and all needs met. Per PT evaluation, pt sat on EOB with max A, tolerating 2 mins at EOB Education OT Patient Education: Correct positioning, Modified ADL techniques, Progress toward Goal/Update tx plan, Purpose of tx/functional activities, Rehab process Teaching Recipient: Patient Teaching Methods: Discussion Response to Teaching: Verbalize Understanding, Reinforcement Needed OT Residential Goals Residential Goals Time Frame: Jun 02, 2021 Eating (QC): 5 Oral Hygiene (QC): 5 Toileting Hygiene (QC): 3 Shower/Bathe Self (QC): 3 Upper Body Dressing (QC): 3 Lower Body Dressing (QC): 3 On/Off Footwear (QC): 2 Additional Goals: 1-Demonstrate ADL Tasks, 2-Verbalize Understanding, 3- ImproveStrength/Emiliana 1=Demonstrate adherence to instructed precautions during ADL tasks. 2=Patient will verbalize/demonstrate understanding of assistive devices/modifications for ADL. 3=Patient will improve strength/tolerance for activity to enable patient to perform ADL's. OT Education/Plan Problem List/Assessment Assessment: Decreased Activ Tolerance, Decreased UE Strength, Impaired Bed Mobility, Impaired Funct Balance, Impaired I ADL's, Impaired Self-Care Skills, Restricted Funct UE ROM Discharge Recommendations Plan/Recommendations: Continue POC Treatment Plan/Plan of Care Patient would benefit from OT for education, treatment and training to promote independence in ADL's, mobility, safety and/or upper extremity function for ADL's. Plan of Care: ADL Retraining, Functional Mobility, UE Funct Exercise/Act Treatment Duration: Jun 02, 2021 Frequency: 5 times per week Estimated Hrs Per Day: .25 hour per day Rehab Potential: Fair Time/GCodes Start Time: 14:04 Stop Time: 14:16 Total Time Billed (hr/min): 12 Billed Treatment Time 1, JOSE ALBERTO SCHMID OT May 24, 2021 14:28
[2021-05-24] MEDS ORDERED: ACETAMINOPHEN 325 MG TABLET PO PRN (14:45)
[2021-05-24] MEDS: cefTRIAXone 1,000 MG/SWFI 10 ML IV PUSH IV SCH ×2 (17:29)
[2021-05-24] MEDS: rOPINIRole 0.25 MG (REQUIP) TAB PO SCH (21:05)
[2021-05-24] MEDS: ROSUVASTATIN 10 MG (CRESTOR) TABLET PO SCH (21:06)
[2021-05-24] MEDS: amLODIPine 5 MG (NORVASC) TAB PO SCH (21:07)
[2021-05-25 00:05] VITALS: BP 146/67
[2021-05-25 04:28] VITALS: BP 145/71
[2021-05-25 06:14] LABS: BASOPHILS # (AUTO) 0.1 10^3/uL (0.0-0.1); BASOPHILS % (AUTO) 1 % (0-10); EOSINOPHILS # (AUTO) 0.3 10^3/uL (0.0-0.3); EOSINOPHILS % (AUTO) 2 % (0-10); HEMATOCRIT 27 % (35-52); LYMPHOCYTES # (AUTO) 1.4 10^3/uL (1.0-4.0); LYMPHOCYTES % (AUTO) 13 % (12-44); MEAN CORPUSCULAR HEMOGLOBIN 30 pg (25-34); MEAN CORPUSCULAR HGB CONC 30 g/dL (32-36); MEAN CORPUSCULAR VOLUME 99 fL (80-99); MEAN PLATELET VOLUME 9.5 fL (9.0-12.2); MONOCYTES # (AUTO) 0.9 10^3/uL (0.0-1.0); MONOCYTES % (AUTO) 8 % (0-12); NEUTROPHILS # (AUTO) 7.8 10^3/uL (1.8-7.8); NEUTROPHILS % (AUTO) 75 % (42-75); PLATELET COUNT 417 10^3/uL (130-400); WHITE BLOOD COUNT 10.4 10^3/uL (4.3-11.0)
[2021-05-25 06:28] LABS: POTASSIUM 4.5 MMOL/L (3.6-5.0)
[2021-05-25 06:29] LABS: CALCIUM 7.6 MG/DL (8.5-10.1)
[2021-05-25 06:33] LABS: CREATININE SERUM 3.64 MG/DL (0.60-1.30)
[2021-05-25] MEDS: inSUlin ASPART (NovoLOG) 1 UNIT/0.01 ML (CHARGE PER UNIT) SC SCH (06:33)
[2021-05-25] MEDS: FUROSEMIDE 40 MG/4 ML INJ (LASIX) IVP SCH (06:43)
[2021-05-25 07:26] VITALS: BP 149/64
[2021-05-25] MEDS ORDERED: DARBEPOETIN 40 MCG/ML (ARANESP) HOSPITAL SC ONE (08:00)
[2021-05-25] MEDS: CALCIUM ACETATE 667 MG CAP (PHOSLO) PO SCH (09:00)
[2021-05-25] MEDS ORDERED: CEFDINIR 300 MG (OMNICEF) CAP PO SCH (09:00)
[2021-05-25] MEDS: ASPIRIN E.C. 81 MG (ECOTRIN) TAB PO SCH (09:57)
[2021-05-25] MEDS: DOCUSATE SODIUM 100 MG (COLACE) CAP PO SCH (09:58)
[2021-05-25] MEDS: cloNIDine 0.1 MG (CATAPRES) TAB PO SCH (09:58)
[2021-05-25] MEDS: SODIUM BICARBONATE 650 MG TABLET (NON-FORMULARY) PO SCH (09:59)
[2021-05-25] MEDS: SENNOSIDES 8.6 MG (SENOKOT) TAB PO SCH (09:59)
[2021-05-25] MEDS: FLUTICASONE NASAL SPRAY (FLONASE) 16 GM BTL NS SCH (09:59)
[2021-05-25] MEDS: ALLOPURINOL 100 MG (ZYLOPRIM) TAB PO SCH (10:00)
--- NOTE | 2021-05-25 10:19 | Physical Therapy Daily Note ---
PT Daily Note-Current Subjective Patient is very agreeable to participate with therapy. Mental Status Patient Orientation: Person, Time, Situation Attachments: Oxygen, De León Catheter Transfers SCALE: Activities may be completed with or without assistive devices. 4-Bbavevomwm-uqcglfq completes the activity by him/herself with no assistance from a helper. 5-Set-up or Clean-up Assistance-helper sets up or cleans up; patient completes activity. [place] assists only prior to or following the activity. 4-Supervision or Touching Assistance-helper provides verbal cues and/or touching/steadying and/or contact guard assistance as patient completes activity. Assistance may be provided throughout the activity or intermittently. 3-Partial/Moderate Assistance-helper does LESS THAN HALF the effort. [place] lifts, holds or supports trunk or limbs, but provides less than half the effort. 2-Substantial/Maximal Assistance-helper does MORE THAN HALF the effort. [place] lifts or holds trunk or limbs and provides more than half the effort. 5-Cfsqeswrj-akfevg does ALL the effort. Patient does none of the effort to complete the activity. Or, the assistance of 2 or more helpers is required for the patient to complete the activity. If activity was not attempted, code reason: 7-Patient Refused. 9-Not Applicable-not attempted and the patient did not perform the activity before the current illness, exacerbation or injury. 10-Not Attempted due to Environmental Limitations-(lack of equipment, weather restraints, etc.). 88-Not Attempted due to Medical Conditions or Safety Concerns. Lying to Sitting/Side of Bed(Q: 2 Sit to Stand (QC): 3 Chair/Wmf-yi-Orqxy Xfer(QC): 3 patient able to perform sit to stand to FWW and pivot to recliner without difficulty Weight Bearing Right Lower Extremity: Right Weight Bearing/Tolerated Exercises Seated Therapy Exercises: Ankle pumps, Long arc quads Seated Reps: 12 Assessment Patient up in recliner with needs met. Increase mobility. PT Yardage Control Operator Goals Penitentiary Goals PT [facility]itentiary Goals Time Frame: May 31, 2021 Roll Left & Right (QC): 3 Sit to Lying (QC): 3 Lying-Sitting on Side/Bed(QC): 3 Sit to Stand (QC): 3 Chair/Kpd-xj-Haokl Xfer(QC): 3 Walk 10 feet (QC): 3 Walk 50ft with 2 Turns (QC): 3 PT Plan Treatment/Plan Treatment Plan: Continue Plan of Care Treatment Plan: Bed Mobility, Education, Functional Activity Emiliana, Functional Strength, Gait, Safety, Therapeutic Exercise, Transfers Treatment Duration: May 31, 2021 Frequency: 6 times per week Estimated Hrs Per Day: .25 hour per day Patient and/or Family Agrees t: Yes Time/GCodes Time In: 903 Time Out: 918 Total Billed Treatment Time: 15 Total Billed Treatment 1 visit FA 15 min ISAMAR POWERS PT May 25, 2021 10:19
[2021-05-25 11:20] VITALS: BP 171/72
[2021-05-25] MEDS ORDERED: CEFD300C3 PO (11:27)
[2021-05-25] MEDS ORDERED: TORS20TA3 PO (11:27)
[2021-05-25] MEDS ORDERED: CALC667C10 PO (11:27)
[2021-05-25] MEDS ORDERED: NF-SODBICA PO (11:27)
[2021-05-25] MEDS ORDERED: AMLO-251 PO (11:27)
[2021-05-25] MEDS ORDERED: CARV12.53 PO (11:27)
--- NOTE | 2021-05-25 12:00 | Discharge Inst-Skilled Nursing ---
Discharge Inst-Skilled NF Reconcile Patient Problems Problems Reviewed?: Yes Consult/Follow Up/Orders Follow Up Appt.: next shelter rounds Skilled NF Admit to: [facility] Certification (SNF) I certify that SNF services are required to be given on an inpatient basis because of the above named patient's need for jail care on a continuing basis for the conditions(s) for which he/she was receiving inpatient hospital services prior to his/her transfer to the SNF. Correction Facility Order: Nursing Services, Highway Worker-Evaluate & Treat, Physical Therapy-Evaluate & Treat Oxygen Delivery Method: Nasal Cannula Oxygen Flow Rate L/min (Range): 2 PRN Discharge Diet: Low Sodium Diet Daily Activity as Tolerated: Yes Resuscitation Status: Do Not Resuscitate New & Resume Previous Orders Janeth Waldron May 25, 2021 11:58 JANETH WALDRON MD May 25, 2021 12:00
--- NOTE | 2021-05-25 12:15 | Progress Note - Hospitalist ---
MARS BERRIOS 05/25/21 1215: Subjective HPI/CC On Admission Time Seen by Provider: 08:35 Subjective/Events-last exam Pt was awake and alert. She reports having no new problems. Says that she feels better than yesterday and is doing fine. Review of Systems General: No Chills, No Other (fever) Pulmonary: No Dyspnea, No Other (SOB) Cardiovascular: No: Chest Pain, Palpitations Neurological: No: Other (ANDERSON, dizziness) Objective Exam Vital Signs Vital Signs Date Time Temp Pulse Resp B/P (MAP) Pulse Ox O2 Delivery O2 Flow Rate FiO2 05/25/21 11:20 35.8 63 20 171/72 (105) 99 Nasal Cannula 2.00 Capillary Refill : Less Than 3 Seconds General Appearance: No Apparent Distress, WD/WN Respiratory: Lungs Clear, Normal Breath Sounds Cardiovascular: Regular Rate, Rhythm, No Murmur Gastrointestinal: Non Tender, Soft Extremity: Pedal Edema (3+/4) Neurologic/Psychiatric: Alert, Normal Mood/Affect Results/Procedures Lab Laboratory Tests 05/25/21 05:35 Patient resulted labs reviewed. Assessment/Plan Assessment and Plan Assess & Plan/Chief Complaint Assessment 1.RAY on CKD 2.Anemia related to CKD 3. UTI Plan Started on Cefdinir, sodium bicarbonate and calcium acetate. Dosage increase for carvodilol, amilodipine, and torsemide. Discussed with pt how she has improved since she was first admitted and what was treated. Discussed that she would be discharged with medications that she would need to take. she will be discharged to the half-way in [place]. Pt was understanding all of subjects discussed GISEL WALDRON MD 05/29/21 1024: MARS BERRIOS May 25, 2021 12:15 GISEL WALDRON MD May 29, 2021 10:24
--- NOTE | 2021-05-25 13:03 | Occupational Ther Daily Note ---
OT Current Status-Daily Note Subjective Pt seated upright in recliner, agreeable to OT tx. ADL-Treatment Therapy Code Descriptions/Definitions Functional Hooker Measure: 0=Not Assessed/NA 4=Minimal Assistance 1=Total Assistance 5=Supervision or Setup 2=Maximal Assistance 6=Modified Hooker 3=Moderate Assistance 7=Complete IndependenceSCALE: Activities may be completed with or without assistive devices. 8-Bfhqoxxhbr-mhuodqg completes the activity by him/herself with no assistance from a helper. 5-Set-up or Clean-up Assistance-helper sets up or cleans up; patient completes activity. [place] assists only prior to or following the activity. 4-Supervision or Touching Assistance-helper provides verbal cues and/or touching/steadying and/or contact guard assistance as patient completes activity. Assistance may be provided throughout the activity or intermittently. 3-Partial/Moderate Assistance-helper does LESS THAN HALF the effort. [place] lifts, holds or supports trunk or limbs, but provides less than half the effort. 2-Substantial/Maximal Assistance-helper does MORE THAN HALF the effort. [place] lifts or holds trunk or limbs and provides more than half the effort. 6-Lwbncbhrs-qncobe does ALL the effort. Patient does none of the effort to complete the activity. Or, the assistance of 2 or more helpers is required for the patient to complete the activity. If activity was not attempted, code reason: 7-Patient Refused. 9-Not Applicable-not attempted and the patient did not perform the activity before the current illness, exacerbation or injury. 10-Not Attempted due to Environmental Limitations-(lack of equipment, weather restraints, etc.). 88-Not Attempted due to Medical Conditions or Safety Concerns. Other Treatment Pt seated upright in recliner, completed oral care using foam swab with set up assistance, washed face with set up assistance and brushed hair with min A (assist in back with tangles). In order to increase BUE strength and activity tolerance, pt completed x15 reps each of the following: elbow flexion, elbow extension, finger flexion/extension. Post tx, pt seated in recliner, call light in reach and all needs met. Education OT Patient Education: Correct positioning, Modified ADL techniques, Progress toward Goal/Update tx plan, Purpose of tx/functional activities, Rehab process Teaching Recipient: Patient Teaching Methods: Demonstration, Discussion Response to Teaching: Verbalize Understanding OT Program Project Manager Goals Program Project Manager Goals Time Frame: Jun 02, 2021 Eating (QC): 5 Oral Hygiene (QC): 5 Toileting Hygiene (QC): 3 Shower/Bathe Self (QC): 3 Upper Body Dressing (QC): 3 Lower Body Dressing (QC): 3 On/Off Footwear (QC): 2 Additional Goals: 1-Demonstrate ADL Tasks, 2-Verbalize Understanding, 3- ImproveStrength/Emiliana 1=Demonstrate adherence to instructed precautions during ADL tasks. 2=Patient will verbalize/demonstrate understanding of assistive devices/modifications for ADL. 3=Patient will improve strength/tolerance for activity to enable patient to perform ADL's. OT Education/Plan Problem List/Assessment Assessment: Decreased Activ Tolerance, Decreased UE Strength, Impaired I ADL's, Impaired Self-Care Skills Discharge Recommendations Plan/Recommendations: Continue POC Treatment Plan/Plan of Care Patient would benefit from OT for education, treatment and training to promote independence in ADL's, mobility, safety and/or upper extremity function for ADL's. Plan of Care: ADL Retraining, Functional Mobility, UE Funct Exercise/Act Treatment Duration: Jun 02, 2021 Frequency: 5 times per week Estimated Hrs Per Day: .25 hour per day Rehab Potential: Fair Time/GCodes Start Time: 11:38 Stop Time: 11:50 Total Time Billed (hr/min): 12 Billed Treatment Time 1, ADL JOSE ALBERTO SIERRA OT May 25, 2021 13:03
[2021-05-25 13:58] VITALS: BP 171/72
[2021-05-25] MEDS ORDERED: FUROSEMIDE 40 MG (LASIX) TAB PO SCH (17:00)
--- NOTE | 2021-05-29 10:23 | Discharge Summary ---
Discharge Summary Hospital Course Was the Problem List Reviewed?: Yes Problems/Dx: (1) Acute kidney injury superimposed on chronic kidney disease Status: Acute (2) Hyperkalemia Status: Resolved (3) Anemia Status: Acute Qualifiers: Qualified Codes: N18.5 - Chronic kidney disease, stage 5; D63.1 - Anemia in chronic kidney disease (4) UTI (urinary tract infection) Status: Acute Qualifiers: Qualified Codes: N30.01 - Acute cystitis with hematuria Hospital Course Date of Admission: May 23, 2021 at 13:59 Admission Diagnosis : RAY on CKD5 Family Physician/Provider: Evans Richey MD Date of Discharge: 05/25/21 Discharge Diagnosis: RAY on CKD5, UTI, Anemia of chronic disease Hospital Course: Marley Hackett is an 86 year old female admitted with acute kidney injury superimposed on chronic kidney disease stage 5. She does not want to undergo dialysis and was managed conservatively. She had issues with hyperkalemia which improved with medications. She had fluid overload which improved with diuretics. She had metabolic acidosis and was started on sodium bicarbonate replacement. She had hyperphosphatemia and was started on Phoslo. She had issues with hypertension and her Amlodipine and Coreg were increased. Her Losartan was discontinued due to her low GFR and hyperkalemia. She had issues with anemia and required 1 unit PRBC. She was given a dose of Epo due to her anemia of chronic disease. She had a UTI and will receive a course of Omnicef. She was discharged back to [facility] for skilled therapies. She will benefit from hospice care in the near future. Labs and Pending Lab Test: Microbiology 05/22/21 Urine Culture - Final, Complete Serratia marcescens Home Meds Active Sodium Bicarbonate 650 Mg Tablet 650 Mg PO TIDWM 30 Days Calcium Acetate 667 Mg Capsule 667 Mg PO TIDWM 30 Days Amlodipine Besylate 10 Mg Tablet 10 Mg PO DAILY 30 Days Carvedilol 12.5 Mg Tablet 12.5 Mg PO BID 30 Days Cefdinir 300 Mg Capsule 300 Mg PO BID 5 Days Torsemide 20 Mg Tablet 40 Mg PO DAILY 30 Days TAKES 2 (20MG) TABS Reported Vitamin D3 (Cholecalciferol (Vitamin D3)) 125 Mcg Capsule 125 Mcg PO DAILY Vitamin B Complex 1 Each Capsule 1 Ea PO DAILY Tramadol HCl 50 Mg Tablet 50 Mg PO Q6H PRN Milk of Magnesia (Magnesium Hydroxide) 400 Mg/5 Ml Oral.susp 30 Ml PO DAILY PRN Hydrocodone-Acetamin 7.5-325 (Hydrocodone/Acetaminophen) 1 Each Tablet 1 Each PO Q4H PRN Neurontin (Gabapentin) 300 Mg Capsule 300 Mg PO DAILY PRN Docusate Sodium 100 Mg Tablet 100 Mg PO DAILY Aspirin EC (Aspirin) 81 Mg Tablet.dr 81 Mg PO BID Allopurinol 100 Mg Tablet 200 Mg PO DAILY TAKES 2 (100MG) TABS Tylenol 8 Hour (Acetaminophen) 650 Mg Tablet.er 650 Mg PO Q6H PRN Novolog Flexpen (Insulin Aspart) 300 Units/3 Ml Solution 3 Units SC AC Levemir Flextouch (Insulin Detemir) 100 Unit/1 Ml Insuln.pen 8 Units SC BID Rosuvastatin Calcium 10 Mg Tablet 10 Mg PO HS Ropinirole HCl 0.5 Mg Tablet 0.5 Mg PO HS Fluticasone Propionate 16 Gm [place].susp 2 Rozel NSEACH DAILY Clonidine HCl 0.1 Mg Tablet 0.1 Mg PO TID HOLD AND NOTIFY NURSE/PCP IF BP <80/50 OR >180/110 AND PULSE <50 OR >110 Assessment/Pt Instructions Take medications as prescribed. Follow up with your PCP. Return with worsening symptoms. Discharge Planning: <30 minutes discharge planning Discharge Instructions Discharge Diet: Low Sodium Diet Discharge Physical Examination Vital Signs Vital Signs Date Time Temp Pulse Resp B/P (MAP) Pulse Ox O2 Delivery O2 Flow Rate FiO2 05/25/21 13:58 35.8 63 20 171/72 99 Nasal Cannula 2.00 General Appearance: No Apparent Distress, Obese Respiratory: Lungs Clear, Normal Breath Sounds, No Respiratory Distress Cardiovascular: Regular Rate, Rhythm, No Murmur Gastrointestinal: Normal Bowel Sounds, Non Tender, Soft Extremity: Normal Inspection, Pedal Edema Skin: Normal Color, Warm/Dry Neurologic/Psychiatric: Alert, Oriented x3, No Motor/Sensory Deficits, Normal Mood/Affect Allergies: Coded Allergies: No Known Drug Allergies (Unverified , 01/16/18) Copy Copies To 1: EVANS RICHEY MD Discharge Summary Date of Admission May 23, 2021 at 13:59 Date of Discharge May 25, 2021 at 14:30 Discharge Date: May 25, 2021 Discharge Time: 14:30 Admission Diagnosis RAY on CKD Comfort Measures/ End of Life Care: Pallative Care Advance Care discuss with: patient Plan: initiate discussion Discharge Diagnosis RAY on CKD5 (1) Acute kidney injury superimposed on chronic kidney disease Status: Acute (2) Hyperkalemia Status: Resolved (3) Anemia Status: Acute Qualifiers: Qualified Codes: N18.5 - Chronic kidney disease, stage 5; D63.1 - Anemia in chronic kidney disease (4) UTI (urinary tract infection) Status: Acute Qualifiers: Qualified Codes: N30.01 - Acute cystitis with hematuria GISEL WALDRON MD May 29, 2021 10:19
== END 2021-05-25 14:30 | DRG 683 ==
LOC: EDUNIT# 11:08 → ER 11:09 → 4TH 14:18 → OBSVTOIN 05-23 13:59
PROVIDERS: ADMIT Internal Medicine; ATTEND Internal Medicine
DX: N17.9 Acute kidney failure, unspecified (principal); N39.0 Urinary tract infection, site not specified; E87.2 Acidosis; N18.5 Chronic kidney disease, stage 5; E87.5 Hyperkalemia; E78.00 Pure hypercholesterolemia, unspecified; E83.39 Other disorders of phosphorus metabolism; I12.9 Hypertensive chronic kidney disease with stage 1 through stage 4 chronic kidney disease, or unspecified chronic kidney disease; D63.1 Anemia in chronic kidney disease; E87.70 Fluid overload, unspecified; E11.22 Type 2 diabetes mellitus with diabetic chronic kidney disease; Z79.4 Long term (current) use of insulin; Z79.82 Long term (current) use of aspirin; Z79.899 Other long term (current) drug therapy
CPT/HCPCS: 36415; 51702; 80048; 80053; 81000; 82728; 82947; 83540; 83550; 84100; 85007; 85025; 85027; 86850; 86900; 86901; 86920; 87077; 87088; 87186; 93005; 94760; 96374; G0378

== ENCOUNTER → 2021-06-09 | Outpatient (CLI) | payer MEDICARE, MEDICAID ==
[~2021-06-09] MED LIST changes: +ACET-2840 PO; +ALLO100T PO; +AMLO-250 PO; +AMLO-251 PO; +ASPI-1238 PO; +CALC667C10 PO; +CARV12.53 PO; +CARV6.252 PO; +CEFD300C3 PO; +CHOL500050 PO; +DOCU100T2 PO; +GABA300C PO; +HYDR-3817 PO; +LOSA50TA63 PO; +MAGN400O7 PO; +NF-SODBICA PO; +TORS20TA3 PO; +TRAM50TA3 PO; +VITA1CAP PO
--- NOTE | 2021-06-09 13:31 | Diagnostic Imaging Report ---
Indication: Elevated d-dimer. TIME OF EXAM: 1:02 PM Correlation is made with prior chest from 01/20/2018. Right chest wall port has tip overlying SVC. Patient does have bilateral pleural effusions, small. Lungs appear to be fairly clear. There is no pneumothorax. IMPRESSION: Bilateral pleural effusions. Dictated by: Dictated on workstation # [id number]
--- NOTE | 2021-06-09 14:47 | Diagnostic Imaging Report ---
Indication: Elevated d-dimer. Patient was administered 5.3 mCi technetium 99m MAA intravenously and imaging over the chest was performed at multiple obliquities. There appears to be fairly homogeneous perfusion to both lungs. No definite pleural-based perfusion defect is seen. IMPRESSION: Normal perfusion study. Dictated by: Dictated on workstation # [id number]
== END ==
LOC: CARD 13:00
PROVIDERS: ATTEND Nurse Practitioner Family
DX: J90 Pleural effusion, not elsewhere classified (principal); N18.9 Chronic kidney disease, unspecified; R79.1 Abnormal coagulation profile
CPT/HCPCS: 71046; 78580; A9540

== ENCOUNTER 2021-06-14 16:05 | Emergency (ER) | payer MEDICARE, MEDICAID ==
[~2021-06-14] VITALS: Ht 180.3 cm; Wt 75.3 kg
--- NOTE | 2021-06-14 16:27 | ED Respiratory ---
General Chief Complaint: Respiratory Problems Stated Complaint: SOB Nursing Triage Note: PT TO ROOM 02 [facility] WITH C/O SOB. PT AT [facility] FOR REHAB AFTER RIGHT HIP FX. Source: patient Exam Limitations: no limitations History of Present Illness Date Seen by Provider: Jun 14, 2021 Time Seen by Provider: 16:26 Initial Comments To ER with reports of [facility] breath [facility] Timing/Duration: just prior to arrival Severity: moderate Associated Symptoms: cough, shortness of breath Allergies and Home Medications Allergies Coded Allergies: No Known Drug Allergies (Unverified , 01/16/18) Home Medications Acetaminophen 650 Mg Tablet.er, 650 MG PO Q6H PRN for PAIN-MILD (1-4), (Reported) Allopurinol 100 Mg Tablet, 200 MG PO DAILY, (Reported) TAKES 2 (100MG) TABS Amlodipine Besylate 10 Mg Tablet, 10 MG PO DAILY Prescribed by: GISEL WALDRON on 05/25/211126 Aspirin 81 Mg Tablet.dr, 81 MG PO BID, (Reported) Calcium Acetate 667 Mg Capsule, 667 MG PO TIDWM Prescribed by: GISEL WALDRON on 05/25/211126 Carvedilol 12.5 Mg Tablet, 12.5 MG PO BID Prescribed by: GISEL WALDRON on 05/25/211126 Cefdinir 300 Mg Capsule, 300 MG PO BID Prescribed by: GISEL WALDRON on 05/25/211126 Cholecalciferol (Vitamin D3) 125 Mcg Capsule, 125 MCG PO DAILY, (Reported) Clonidine HCl 0.1 Mg Tablet, 0.1 MG PO TID, (Reported) HOLD AND NOTIFY NURSE/PCP IF BP <80/50 OR >180/110 AND PULSE <50 OR >110 Docusate Sodium 100 Mg Tablet, 100 MG PO DAILY, (Reported) Fluticasone Propionate 16 Gm [place].susp, 2 SPRAY NSEACH DAILY, (Reported) Gabapentin 300 Mg Capsule, 300 MG PO DAILY PRN for PAIN-BREAKTHROUGH, (Reported) Hydrocodone/Acetaminophen 1 Each Tablet, 1 EACH PO Q4H PRN for PAIN-MODERATE (5- 7), (Reported) Insulin Aspart 300 Units/3 Ml Solution, 3 UNITS SC AC, (Reported) Insulin Detemir 100 Unit/1 Ml Insuln.pen, 8 UNITS SC BID, (Reported) Magnesium Hydroxide 400 Mg/5 Ml Oral.susp, 30 ML PO DAILY PRN for CONSTIPATION- 7TH LINE, (Reported) Ropinirole HCl 0.5 Mg Tablet, 0.5 MG PO HS, (Reported) Rosuvastatin Calcium 10 Mg Tablet, 10 MG PO HS, (Reported) Sodium Bicarbonate 650 Mg Tablet, 650 MG PO TIDWM Prescribed by: GISEL WALDRON on 05/25/211126 Torsemide 20 Mg Tablet, 40 MG PO DAILY TAKES 2 (20MG) TABS Prescribed by: GISEL WALDRON on 05/25/211126 Tramadol HCl 50 Mg Tablet, 50 MG PO Q6H PRN for PAIN-MODERATE (5-7), (Reported) Vitamin B Complex 1 Each Capsule, 1 EA PO DAILY, (Reported) Patient Home Medication List Home Medication List Reviewed: Yes Review of Systems Review of Systems Constitutional: see HPI EENTM: see HPI Respiratory: see HPI, cough Cardiovascular: no symptoms reported Genitourinary: no symptoms reported Musculoskeletal: no symptoms reported Skin: no symptoms reported Psychiatric/Neurological: No Symptoms Reported Hematologic/Lymphatic: No Symptoms Reported Past Bivcxnn-Vjzmqx-Wttecc Hx Patient Social History Tobacco Use?: No Smoking Status: Never a Smoker Substance use?: No Alcohol Use?: No Pt feels they are or have been: No Immunizations Up To Date First/Initial COVID19 Vaccinat: 2020 Second COVID19 Vaccination Malcom: 2020 Seasonal Allergies Seasonal Allergies: No Past Medical History Surgery/Hospitalization HX: RIGHT HIP FX WITH REPAIR Surgeries: No Respiratory: No Cardiac: Yes Hypertension Neurological: No Genitourinary: Yes (history of urinary tract infection) Bladder Infection, Renal Failure Gastrointestinal: No Musculoskeletal: No Endocrine: Yes (hyperparathyroidism) Diabetes, Insulin dep HEENT: No Cancer: No Psychosocial: No Integumentary: No Blood Disorders: Yes (anemia secondary to renal failure) Adverse Reaction/Blood Tranf: No Family Medical History No Pertinent Family Hx Physical Exam Vital Signs - First Documented 06/14/21 16:08 Temp 36.8 Pulse 63 Resp 19 B/P (MAP) 148/124 (132) Pulse Ox 95 O2 Delivery Nasal Cannula O2 Flow Rate 1.50 Capillary Refill : Less Than 3 Seconds Height: 5'2.00" Weight: 209lbs. 7.0oz. 94.525356ag; 23.00 BMI Method:Estimated General Appearance: WD/WN, no apparent distress Eyes: Bilateral Eye Normal Inspection, Bilateral Eye PERRL, Bilateral Eye EOMI Neck: non-tender Respiratory: No wheezing; other (94% on room air. Slightly diminished on right. ) Cardiovascular: regular rate, rhythm, no murmur Gastrointestinal: normal bowel sounds, non tender, soft Neurologic/Psychiatric: alert, normal mood/affect, oriented x 3 Skin: normal color, warm/dry Focused Exam Lactate Level 06/14/21 17:10: Lactic Acid Level 0.72 Lactic Acid Level Laboratory Tests Test 06/14/21 17:10 Lactic Acid Level 0.72 MMOL/L (0.50-2.00) Procedures/Interventions Date of ETT Placement: Jan 16, 2018 Time of ETT Placement: 1730 Progress/Results/Core Measures Suspected Sepsis SIRS Temperature: Pulse: 63 Respiratory Rate: 19 Laboratory Tests 06/14/21 17:10: White Blood Count 12.5H Blood Pressure 148 /124 Mean: 132 06/14/21 17:10: Lactic Acid Level 0.72 Laboratory Tests 06/14/21 17:10: Creatinine 3.98H, INR Comment 1.0, Platelet Count 365, Total Bilirubin 0.2 Results/Orders Lab Results Laboratory Tests Test 06/14/21 16:17 06/14/21 17:10 06/14/21 20:11 Range/Units SARS-CoV-2 RNA (RT-PCR) Not Detected Not Detecte White Blood Count 12.5 H 4.3-11.0 10^3/uL Red Blood Count 2.67 L 3.80-5.11 10^6/uL Hemoglobin 8.3 L 11.5-16.0 g/dL Hematocrit 26 L 35-52 % Mean Corpuscular Volume 96 80-99 fL Mean Corpuscular Hemoglobin 31 25-34 pg Mean Corpuscular Hemoglobin Concent 32 32-36 g/dL Red Cell Distribution Width 14.5 10.0-14.5 % Platelet Count 365 130-400 10^3/uL Mean Platelet Volume 9.7 9.0-12.2 fL Immature Granulocyte % (Auto) 0 % Neutrophils (%) (Auto) 70 42-75 % Lymphocytes (%) (Auto) 20 12-44 % Monocytes (%) (Auto) 9 0-12 % Eosinophils (%) (Auto) 1 0-10 % Basophils (%) (Auto) 0 0-10 % Neutrophils # (Auto) 8.7 H 1.8-7.8 10^3/uL Lymphocytes # (Auto) 2.5 1.0-4.0 10^3/uL Monocytes # (Auto) 1.2 H 0.0-1.0 10^3/uL Eosinophils # (Auto) 0.1 0.0-0.3 10^3/uL Basophils # (Auto) 0.1 0.0-0.1 10^3/uL Immature Granulocyte # (Auto) 0.0 0.0-0.1 10^3/uL Prothrombin Time 13.9 12.2-14.7 SEC INR Comment 1.0 0.8-1.4 Activated Partial Thromboplast Time 31 24-35 SEC Sodium Level 138 135-145 MMOL/L Potassium Level 5.7 H 3.6-5.0 MMOL/L Chloride Level 105 98-107 MMOL/L Carbon Dioxide Level 26 21-32 MMOL/L Anion Gap 7 5-14 MMOL/L Blood Urea Nitrogen 53 H 7-18 MG/DL Creatinine 3.98 H 0.60-1.30 MG/DL Estimat Glomerular Filtration Rate 11 BUN/Creatinine Ratio 13 Glucose Level 119 H 70-105 MG/DL Lactic Acid Level 0.72 0.50-2.00 MMOL/L Calcium Level 8.5 8.5-10.1 MG/DL Corrected Calcium 9.5 8.5-10.1 MG/DL Total Bilirubin 0.2 0.1-1.0 MG/DL Aspartate Amino Transf (AST/SGOT) 31 5-34 U/L Alanine Aminotransferase (ALT/SGPT) 27 0-55 U/L Alkaline Phosphatase 121 40-136 U/L Total Protein 6.1 L 6.4-8.2 GM/DL Albumin 2.7 L 3.2-4.5 GM/DL Procalcitonin 0.33 H <0.10 NG/ML Urine Color YELLOW Urine Clarity CLEAR Urine pH 7.0 5-9 Urine Specific [place] 1.020 1.016-1.022 Urine Protein 3+ H NEGATIVE Urine Glucose (UA) NEGATIVE NEGATIVE Urine Ketones NEGATIVE NEGATIVE Urine Nitrite NEGATIVE NEGATIVE Urine Bilirubin NEGATIVE NEGATIVE Urine Urobilinogen 0.2 < = 1.0 MG/DL Urine Leukocyte Esterase TRACE H NEGATIVE Urine RBC (Auto) NEGATIVE NEGATIVE Urine RBC NONE /HPF Urine WBC 25-50 H /HPF Urine Squamous Epithelial Cells NONE /HPF Urine Renal Epithelial Cells NONE /HPF Urine Crystals NONE /LPF Urine Bacteria NEGATIVE /HPF Urine Casts NONE /LPF Urine Mucus NEGATIVE /LPF Urine Culture Indicated CULTURE PENDING My Orders Orders - SAMIRA SOTO APRN Cbc With Automated Diff (06/14/21 16:09) Comprehensive Metabolic Panel (06/14/21 16:09) Blood Culture (06/14/21 16:09) Sputum Culture (06/14/21 16:09) Urinalysis (06/14/21 16:09) Urine Culture (06/14/21 16:09) Protime With Inr (06/14/21 16:09) Partial Thromboplastin Time (06/14/21 16:09) Chest 1 View, Ap/Pa Only (06/14/21 16:09) Ed Iv/Invasive Line Start (06/14/21 16:09) Ed Iv/Invasive Line Start (06/14/21 16:09) Vital Signs Adult Sepsis Patie Q15M (06/14/21 16:09) O2 (06/14/21 16:09) Remove Rings In Anticipation O (06/14/21 16:09) Lactic Acid Analyzer (06/14/21 16:09) Covid 19 Inhouse Test (06/14/21 16:09) Procalcitonin (Pct) (06/14/21 19:40) Albuterol/Ipra Inhalation Soln (Duoneb I (06/14/21 19:45) Svn Small Volume Nebulizer (06/14/21 19:40) Ceftriaxone (Rocephin) (06/14/21 20:45) Medications Given in ED Current Medications Medications Dose Ordered Sig/Tara Route Start Time Stop Time Status Last Admin Dose Admin Albuterol/ Ipratropium 3 ml ONCE ONCE INH 06/14/21 19:45 06/14/21 19:47 DC 06/14/21 20:36 3 ML Vital Signs/I&O 06/14/21 06/14/21 16:08 20:37 Temp 36.8 Pulse 63 Resp 19 B/P (MAP) 148/124 (132) Pulse Ox 95 96 O2 Delivery Nasal Cannula Nasal Cannula O2 Flow Rate 1.50 0 Capillary Refill : Less Than 3 Seconds Blood Pressure Mean: 132 Progress Note : Progress Note NAME: [facility] REC#: [id number] PT STATUS: REG ER : 01/22/2012 PHYSICIAN: SAMIRA SOTO APRN ADMIT DATE: 06/14/21/ER Signed Date of Exam:06/14/21 FOREARM, RIGHT, 2 VIEWS INDICATION: Right forearm pain. TECHNIQUE: AP and lateral views of the right forearm are obtained. COMPARISON: There is no prior study for comparison. FINDINGS: There is a fracture of the [id number] shaft of the radius, with near-anatomic alignment. No other abnormality is seen. Overlying cast obscures bone detail. IMPRESSION: Well-aligned radial shaft fracture with overlying cast in place. Dictated by: Dictated on workstation # [id number] Dict: 06/14/21 1613 Trans: 06/14/21 1622 [id number] Interpreted by: CELESTINA GARCIA MD Electronically signed by: CELESTINA GARCIA MD 06/14/21 1622 Departure Communication (Admissions) 2040-Her oxygen remains 96% on room air. DNR status. Had negative VQ scan 4 days ago for elevated d-dimer and soa. Impression Primary Impression: UTI (urinary tract infection) Additional Impression: CKD (chronic kidney disease) stage 4, GFR 15-29 ml/min Disposition: 01 HOME, SELF-CARE Condition: Stable Departure-Patient Inst. Decision time for Depature: 20:50 Referrals: EVANS RICHEY MD (PCP/Family) Primary Care Physician Patient Instructions: Urinary Tract Infection, Adult ED Add. Discharge Instructions: 1. Medication as directed 2. Follow-up with your doctor next week All discharge instructions reviewed with patient and/or family. Voiced understanding. Scripts Levofloxacin (Levofloxacin) 250 Mg Tablet 250 MG PO Q48H, #2 TAB Prov: SAMIRA SOTO APRN 06/14/21 SAMIRA SOTO APRN Jun 14, 2021 16:27
[2021-06-14 17:25] LABS: BASOPHILS # (AUTO) 0.1 10^3/uL (0.0-0.1); BASOPHILS % (AUTO) 0 % (0-10); EOSINOPHILS # (AUTO) 0.1 10^3/uL (0.0-0.3); EOSINOPHILS % (AUTO) 1 % (0-10); HEMATOCRIT 26 % (35-52); HEMOGLOBIN 8.3 g/dL (11.5-16.0); LYMPHOCYTES # (AUTO) 2.5 10^3/uL (1.0-4.0); LYMPHOCYTES % (AUTO) 20 % (12-44); MEAN CORPUSCULAR HEMOGLOBIN 31 pg (25-34); MEAN CORPUSCULAR HGB CONC 32 g/dL (32-36); MEAN CORPUSCULAR VOLUME 96 fL (80-99); MEAN PLATELET VOLUME 9.7 fL (9.0-12.2); MONOCYTES # (AUTO) 1.2 10^3/uL (0.0-1.0); MONOCYTES % (AUTO) 9 % (0-12); NEUTROPHILS # (AUTO) 8.7 10^3/uL (1.8-7.8); NEUTROPHILS % (AUTO) 70 % (42-75); PLATELET COUNT 365 10^3/uL (130-400); WHITE BLOOD COUNT 12.5 10^3/uL (4.3-11.0)
--- NOTE | 2021-06-14 17:33 | Diagnostic Imaging Report ---
INDICATION: Sepsis. Comparison is made with prior examination of 01/18/2018. FINDINGS: The heart size is normal. There is bibasilar atelectasis and or pneumonitis. There are small bilateral pleural effusions. There is no pneumothorax. Mediastinum is unremarkable. IMPRESSION: Bibasilar atelectasis and or pneumonitis and small bilateral pleural effusions. Dictated by: Dictated on workstation # [id number]
[2021-06-14 17:38] LABS: ALBUMIN 2.7 GM/DL (3.2-4.5); POTASSIUM 5.7 MMOL/L (3.6-5.0); PROTHROMBIN TIME PATIENT 13.9 SEC (12.2-14.7)
[2021-06-14 17:39] LABS: CALCIUM 8.5 MG/DL (8.5-10.1)
[2021-06-14 17:40] LABS: TOTAL PROTEIN 6.1 GM/DL (6.4-8.2)
[2021-06-14 17:42] LABS: BILIRUBIN,TOTAL 0.2 MG/DL (0.1-1.0)
[2021-06-14 17:44] LABS: CREATININE SERUM 3.98 MG/DL (0.60-1.30)
[2021-06-14] MEDS ORDERED: RT-ALBUTEROL/IPRATROPIUM 3 ML (DUONEB) VIAL INH ONE (19:45)
[2021-06-14 20:18] LABS: BILIRUBIN,URINE NEGATIVE (NEGATIVE); CLARITY,URINE CLEAR; COLOR,URINE YELLOW; GLUCOSE, URINE (UA) NEGATIVE (NEGATIVE); KETONES,URINE NEGATIVE (NEGATIVE); LEUKOCYTE ESTERASE ,URINE TRACE (NEGATIVE); NITRITE,URINE NEGATIVE (NEGATIVE); PROTEIN,URINE 3+ (NEGATIVE)
[2021-06-14 20:25] LABS: BACTERIA,URINE NEGATIVE /HPF; WBC,URINE 25-50 /HPF
[2021-06-14] MEDS ORDERED: cefTRIAXone 1,000 MG in WATER (STERILE) FOR INJECTION 10 ML IV ONE (20:45)
[2021-06-14] MEDS ORDERED: LEVO250T46 PO (20:52)
[2021-06-14] MEDS ORDERED: FUROSEMIDE 40 MG/4 ML INJ (LASIX) IVP ONE (21:15)
[2021-06-14] MEDS ORDERED: RX-ALBUTEROL NEB 2.5 MG/3 ML PACK #5 IH STA (21:27)
[2021-06-14 22:52] VITALS: BP 158/90
== END 2021-06-14 22:52 | disposition home or self-care (01) ==
LOC: EDUNIT# 16:05 → ER 16:06
DX: N39.0 Urinary tract infection, site not specified (principal); I12.9 Hypertensive chronic kidney disease with stage 1 through stage 4 chronic kidney disease, or unspecified chronic kidney disease; E11.22 Type 2 diabetes mellitus with diabetic chronic kidney disease; N18.9 Chronic kidney disease, unspecified; Z20.822 Contact with and (suspected) exposure to COVID-19; Z79.4 Long term (current) use of insulin; Z79.82 Long term (current) use of aspirin; Z79.899 Other long term (current) drug therapy
CPT/HCPCS: 36415; 71045; 80053; 81000; 83605; 83880; 84145; 85025; 85610; 85730; 87040; 87077; 87088; 87186; 87636; 94640

== ENCOUNTER 2021-06-27 12:03 | Emergency (ER) | payer MEDICARE, MEDICAID ==
[~2021-06-27] VITALS: Ht 162.5 cm; Wt 75.3 kg
[~2021-06-27 12:03] MED LIST changes: +LEVO250T46 PO
--- NOTE | 2021-06-27 12:23 | ED General ---
General Stated Complaint: KIDNEY FAILURE Source of Information: Patient Exam Limitations: No Limitations History of Present Illness Date Seen by Provider: Jun 27, 2021 Time Seen by Provider: 12:22 Initial Comments To ER with reports of kidney failure. She has had increasing shortness of breath. She is chronically on 2 L of oxygen and that requirement increased to 3 L about 1 to 2 days ago. She follows with Dr. Echavarria from nephrology with typically having a creatinine of about 3.9. She has DO NOT RESUSCITATE status but would like to start dialysis so was referred to the emergency room. She does not make much urine she states. She has had weeping and leaking of fluid from both arms and both legs. Timing/Duration: 1-2 Days Severity: Moderate Associated Systoms: Denies Symptoms Allergies and Home Medications Allergies Coded Allergies: No Known Drug Allergies (Unverified , 01/16/18) Patient Home Medication List Home Medication List Reviewed: Yes Acetaminophen (Tylenol 8 Hour) 650 Mg Tablet.er, 650 MG PO Q6H PRN for PAIN-MILD (1-4), (Reported) Entered as Reported by: RENZO TAPIA on 05/22/211555 Allopurinol (Allopurinol) 100 Mg Tablet, 200 MG PO DAILY, (Reported) Entered as Reported by: RENZO TAPIA on 05/22/211555 Amlodipine Besylate (Amlodipine Besylate) 10 Mg Tablet, 10 MG PO DAILY Prescribed by: GISEL WALDRON on 05/25/211126 Aspirin (Aspirin EC) 81 Mg Tablet.dr, 81 MG PO BID, (Reported) Entered as Reported by: RENZO TAPIA on 05/22/21 155 Calcium Acetate (Calcium Acetate) 667 Mg Capsule, 667 MG PO TIDWM Prescribed by: GISEL WALDRON on 05/25/21 112 Carvedilol (Carvedilol) 12.5 Mg Tablet, 12.5 MG PO BID Prescribed by: GISEL WALDRON on 05/25/211126 Cefdinir (Cefdinir) 300 Mg Capsule, 300 MG PO BID Prescribed by: GISEL WALDRON on 05/25/211126 Cholecalciferol (Vitamin D3) (Vitamin D3) 125 Mcg Capsule, 125 MCG PO DAILY, (Reported) Entered as Reported by: RENZO TAPIA on 05/22/211555 Clonidine HCl (Clonidine HCl) 0.1 Mg Tablet, 0.1 MG PO TID, (Reported) Entered as Reported by: JUDI JIMÉNEZ on 01/17/18900 Docusate Sodium (Docusate Sodium) 100 Mg Tablet, 100 MG PO DAILY, (Reported) Entered as Reported by: RENZO TAPIA on 05/22/211555 Fluticasone Propionate (Fluticasone Propionate) [facility] [employer] [facility].susp, 2 SPRAY NSEACH DAILY, (Reported) Entered as Reported by: JUDI JIMÉNEZ on 01/17/18900 Gabapentin (Neurontin) 300 Mg Capsule, 300 MG PO DAILY PRN for PAIN- BREAKTHROUGH, (Reported) Entered as Reported by: RENZO TAPIA on 05/22/211555 Hydrocodone/Acetaminophen (Hydrocodone-Acetamin 7.5-325) 1 Each Tablet, 1 EACH PO Q4H PRN for PAIN-MODERATE (5-7), (Reported) Entered as Reported by: RENZO TAPIA on 05/22/211555 Insulin Aspart (Novolog Flexpen) 300 Units/3 Ml Solution, 3 UNITS SC AC, (Reported) Entered as Reported by: JUDI JIMÉNEZ on 01/17/18900 Insulin Detemir (Levemir Flextouch) 100 Unit/1 Ml Insuln.pen, 8 UNITS SC BID, (Reported) Entered as Reported by: JUDI JIMÉNEZ on 01/17/18900 Levofloxacin (Levofloxacin) 250 Mg Tablet, 250 MG PO Q48H Prescribed by: SAMIRA SOTO on 06/14/212051 Magnesium Hydroxide (Milk of Magnesia) 400 Mg/5 Ml Oral.susp, 30 ML PO DAILY PRN for CONSTIPATION-7TH LINE, (Reported) Entered as Reported by: RENZO TAPIA on 05/22/211555 Ropinirole HCl (Ropinirole HCl) 0.5 Mg Tablet, 0.5 MG PO HS, (Reported) Entered as Reported by: JUDI JIMÉNEZ on 01/17/18900 Rosuvastatin Calcium (Rosuvastatin Calcium) 10 Mg Tablet, 10 MG PO HS, (Reported) Entered as Reported by: JUDI JIMÉNEZ on 01/17/18900 Sodium Bicarbonate (Sodium Bicarbonate) 650 Mg Tablet, 650 MG PO TIDWM Prescribed by: GISEL WALDRON on 05/25/21 112 Torsemide (Torsemide) 20 Mg Tablet, 40 MG PO DAILY Prescribed by: GISEL WALDRON on 05/25/21 1127 Tramadol HCl (Tramadol HCl) 50 Mg Tablet, 50 MG PO Q6H PRN for PAIN-MODERATE (5- 7), (Reported) Entered as Reported by: RENZO TAPIA on 05/22/21 155 Vitamin B Complex (Vitamin B Complex) 1 Each Capsule, 1 EA PO DAILY, (Reported) Entered as Reported by: RENZO TAPIA on 05/22/21 155 Review of Systems Review of Systems Constitutional: see HPI EENTM: see HPI Respiratory: no symptoms reported Cardiovascular: no symptoms reported Genitourinary: no symptoms reported Musculoskeletal: no symptoms reported Skin: no symptoms reported Psychiatric/Neurological: No Symptoms Reported Hematologic/Lymphatic: No Symptoms Reported Immunological/Allergic: no symptoms reported Past Yuwmcpw-Hbjcrv-Mnwydr Hx Seasonal Allergies Seasonal Allergies: No Past Medical History Surgery/Hospitalization HX: RIGHT HIP FX WITH REPAIR Surgeries: No Respiratory: No Cardiac: Yes Hypertension Neurological: No Genitourinary: Yes (history of urinary tract infection) Bladder Infection, Renal Failure Gastrointestinal: No Musculoskeletal: No Endocrine: Yes (hyperparathyroidism) Diabetes, Insulin dep HEENT: No Cancer: No Psychosocial: No Integumentary: No 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 7.0oz. [id number]; 23.00 BMI Method:Estimated General Appearance: No Apparent Distress, WD/WN, Other (Alert.) Eyes: Bilateral Eye Normal Inspection, Bilateral Eye PERRL, Bilateral Eye EOMI Neck: Full Range of Motion, Normal Inspection Respiratory: Lungs Clear, Normal Breath Sounds, No Accessory Muscle Use, No Respiratory Distress Cardiovascular: Regular Rate, Rhythm, Normal Peripheral Pulses Gastrointestinal: Normal Bowel Sounds, Non Tender, Soft Extremity: Normal Capillary Refill, Other (Weeping of serous fluid from the left arm. Anasarca noted.) Neurologic/Psychiatric: Alert, Oriented x3 Skin: Normal Color, Warm/Dry Procedures/Interventions Date of ETT Placement: Jan 16, 2018 Time of ETT Placement: 1730 Progress/Results/Core Measures Suspected Sepsis SIRS Temperature: Pulse: Respiratory Rate: Laboratory Tests 06/27/21 12:55: White Blood Count 9.5 Blood Pressure / Mean: Laboratory Tests 06/27/21 12:55: Creatinine 3.84H, Platelet Count 384, Total Bilirubin 0.2 Results/Orders Lab Results Laboratory Tests Test 06/27/21 12:55 Range/Units White Blood Count 9.5 4.3-11.0 10^3/uL Red Blood Count 2.36 L 3.80-5.11 10^6/uL Hemoglobin 7.2 L 11.5-16.0 g/dL Hematocrit 23 L 35-52 % Mean Corpuscular Volume 98 80-99 fL Mean Corpuscular Hemoglobin 31 25-34 pg Mean Corpuscular Hemoglobin Concent 31 L 32-36 g/dL Red Cell Distribution Width 15.0 H 10.0-14.5 % Platelet Count 384 130-400 10^3/uL Mean Platelet Volume 10.0 9.0-12.2 fL Immature Granulocyte % (Auto) 0 % Neutrophils (%) (Auto) 74 42-75 % Lymphocytes (%) (Auto) 19 12-44 % Monocytes (%) (Auto) 6 0-12 % Eosinophils (%) (Auto) 1 0-10 % Basophils (%) (Auto) 0 0-10 % Neutrophils # (Auto) 7.0 1.8-7.8 10^3/uL Lymphocytes # (Auto) 1.8 1.0-4.0 10^3/uL Monocytes # (Auto) 0.6 0.0-1.0 10^3/uL Eosinophils # (Auto) 0.1 0.0-0.3 10^3/uL Basophils # (Auto) 0.0 0.0-0.1 10^3/uL Immature Granulocyte # (Auto) 0.0 0.0-0.1 10^3/uL Sodium Level 137 135-145 MMOL/L Potassium Level 5.5 H 3.6-5.0 MMOL/L Chloride Level 102 98-107 MMOL/L Carbon Dioxide Level 27 21-32 MMOL/L Anion Gap 8 5-14 MMOL/L Blood Urea Nitrogen 67 H 7-18 MG/DL Creatinine 3.84 H 0.60-1.30 MG/DL Estimat Glomerular Filtration Rate 11 BUN/Creatinine Ratio 17 Glucose Level 165 H 70-105 MG/DL Calcium Level 8.4 L 8.5-10.1 MG/DL Corrected Calcium 9.6 8.5-10.1 MG/DL Total Bilirubin 0.2 0.1-1.0 MG/DL Aspartate Amino Transf (AST/SGOT) 36 H 5-34 U/L Alanine Aminotransferase (ALT/SGPT) 15 0-55 U/L Alkaline Phosphatase 101 40-136 U/L Total Protein 6.0 L 6.4-8.2 GM/DL Albumin 2.5 L 3.2-4.5 GM/DL My Orders Orders - SAMIRA SOTO APRN Cbc With Automated Diff (06/27/21 12:08) Comprehensive Metabolic Panel (06/27/21 12:08) Ua Culture If Indicated (06/27/21 12:08) Ekg Tracing (06/27/21 12:08) Chest 1 View, Ap/Pa Only (06/27/21 12:24) Palliative Care Consult (06/27/21 12:39) Morphine Injection (Morphine Injection (06/27/21 13:00) Morphine Injection (Morphine Injection (06/27/21 13:08) Morphine Injection (Morphine Injection (06/27/21 13:15) Medications Given in ED Current Medications Medications Dose Ordered Sig/Tara Route Start Time Stop Time Status Last Admin Dose Admin Morphine Sulfate 4 mg ONCE ONCE IM 06/27/21 13:00 06/27/21 13:01 DC 06/27/21 13:13 4 MG Vital Signs/I&O 06/27/21 06/27/21 12:05 12:05 Temp 36.6 Pulse 59 Resp 20 B/P (MAP) 97/69 (78) Pulse Ox 99 O2 Delivery Nasal Cannula Nasal Cannula O2 Flow Rate 3.00 3.00 Capillary Refill : Departure Communication (Admissions) EKG shows sinus rhythm rate of 55 no ectopy slightly prolonged QTC at [address] segment change 1238-discussed with the patient starting dialysis per her wishes as it was mentioned earlier this month that she did not want dialysis. I asked what changed and she states that her shortness of breath is what makes her want to get dialysis as that is her most bothersome symptom. She states "if I could just take something to I would do it". I discussed that I do not think dialysis is a good option for her and I do think that hospice is a better choice. She is unfamiliar with hospice. Discussed with her that it focuses on alleviating symptoms of discomfort and shortness of breath and is likely a much better option for her than dialysis. Given all the local hospitals that offer dialysis being on diversion this would require transfer to a facility far away from home which is an additional burden that is unlikely to make a significant improvement in her quality or quantity of life remaining. She is agreeable to initiating hospice. 1347-spoke with patient's primary care provider Yue CARDOZA. She has been trying to get the patient on hospice as has the patient's children for the past month. I also spoke with Dr. Echavarria to inform her of the patient's transition to hospice care. I also spoke with her son Robby who is in agreement with hospice Impression Primary Impression: ESRD (end stage renal disease) Additional Impression: Transitioned from emergency department to hospice Disposition: 01 HOME, SELF-CARE Condition: Stable Departure-Patient Inst. Decision time for Depature: 13:47 Referrals: EVANS RICHEY MD (PCP/Family) Primary Care Physician Patient Instructions: Palliative Care SAMIRA SOTO [employer] Jun 27, 2021 12:23
--- NOTE | 2021-06-27 12:47 | Diagnostic Imaging Report ---
Indication: Cough, shortness of air COMPARISON: 06/14/2021 TECHNIQUE: Single radiograph chest dated 06/27/2021 FINDINGS: Right-sided Port-A-Cath is again identified, appearing similar. The cardiac silhouette is predominantly obscured. Moderate right and small to moderate left bibasilar pleural-parenchymal opacities are present, having worsened since the prior examination. No pneumothorax. Osseous structures appear stable. IMPRESSION: Worsening moderate right and mild to moderate left pleural-parenchymal opacities, related to a combination of pleural fluid with adjacent atelectasis and/or infiltrate. Dictated by: Dictated on workstation # [id number]
[2021-06-27] MEDS ORDERED: morphine INJ 4 MG/ML 1 ML (VIAL/SYRINGE) IM ONE (13:00)
[2021-06-27 13:03] LABS: BASOPHILS % (AUTO) 0 % (0-10); EOSINOPHILS # (AUTO) 0.1 10^3/uL (0.0-0.3); EOSINOPHILS % (AUTO) 1 % (0-10); HEMATOCRIT 23 % (35-52); HEMOGLOBIN 7.2 g/dL (11.5-16.0); LYMPHOCYTES # (AUTO) 1.8 10^3/uL (1.0-4.0); LYMPHOCYTES % (AUTO) 19 % (12-44); MEAN CORPUSCULAR HEMOGLOBIN 31 pg (25-34); MEAN CORPUSCULAR HGB CONC 31 g/dL (32-36); MEAN CORPUSCULAR VOLUME 98 fL (80-99); MONOCYTES # (AUTO) 0.6 10^3/uL (0.0-1.0); MONOCYTES % (AUTO) 6 % (0-12); NEUTROPHILS % (AUTO) 74 % (42-75); PLATELET COUNT 384 10^3/uL (130-400); WHITE BLOOD COUNT 9.5 10^3/uL (4.3-11.0)
[2021-06-27] MEDS ORDERED: morphine INJ 10 MG/ML 1ML (SYR OR VIAL) ONE (13:08)
[2021-06-27] MEDS ORDERED: morphine INJ 10 MG/ML 1ML (SYR OR VIAL) IM ONE (13:15)
[2021-06-27 13:19] LABS: ALBUMIN 2.5 GM/DL (3.2-4.5)
[2021-06-27 13:20] LABS: POTASSIUM 5.5 MMOL/L (3.6-5.0)
[2021-06-27 13:21] LABS: CALCIUM 8.4 MG/DL (8.5-10.1)
[2021-06-27 13:24] LABS: BILIRUBIN,TOTAL 0.2 MG/DL (0.1-1.0)
[2021-06-27 13:26] LABS: CREATININE SERUM 3.84 MG/DL (0.60-1.30)
[2021-06-27 14:45] VITALS: BP 110/77
== END 2021-06-27 14:45 | disposition home or self-care (01) ==
LOC: EDUNIT# 12:03 → ER 12:05
DX: I12.0 Hypertensive chronic kidney disease with stage 5 chronic kidney disease or end stage renal disease (principal); E11.22 Type 2 diabetes mellitus with diabetic chronic kidney disease; N18.6 End stage renal disease; Z51.5 Encounter for palliative care; Z79.4 Long term (current) use of insulin; Z79.82 Long term (current) use of aspirin; Z79.899 Other long term (current) drug therapy
CPT/HCPCS: 36415; 71045; 80053; 85025; 93005